=== PATIENT | male | born 1950 | race Caucasian/White ===

== ENCOUNTER 2017-06-22 06:11 | Inpatient (IN) ==
[2017-06-22] MEDS ORDERED: 0.9 % Sodium Chloride 500 ML IVC ONE (06:29)
[2017-06-22] MEDS ORDERED: Ondansetron 4 MG/2 ML VIAL IVP ONE (06:29)
[2017-06-22] MEDS ORDERED: *HR* Morphine 2 MG/ML SYRINGE IVP ONE (06:29)
[2017-06-22] MEDS ORDERED: Ipratropium/Albuterol Neb 3 ML IH ONE (06:32)
[2017-06-22 06:50] LABS: Basophils % 0.6 %; Eosinophils # 0.3 K/mcL (0.0-0.6); Eosinophils % 4.6 %; Hematocrit 47.5 % (37.5-50.1); Hemoglobin 16.4 g/dL (12.9-16.9); Immature Granulocytes % 0.3 % (0-4); Lymphocytes # 0.7 K/mcL (0.6-4.6); Lymphocytes % 9.7 %; Mean Corpuscular HGB Conc 34.5 g/dL (31.6-35.5); Mean Corpuscular Volume 86.8 fL (83.0-100.0); Mean Platelet Volume 10.1 fL (9.4-12.4); Monocytes # 0.5 K/mcL (0.0-1.3); Monocytes % 6.7 %; Neutrophils # 5.2 K/mcL (1.6-8.9); Platelet Count 140 K/mcL (140-400); Red Blood Count 5.47 M/mcL (4.19-5.50); Red Cell Distribution Width 13.9 % (11.5-14.5); Segmented Neutrophils % 78.1 %
[2017-06-22 07:00] LABS: INR 1.1; Prothrombin Time 11.7 Seconds (9.4-12.1)
[2017-06-22 07:03] LABS: Activated Partial Thrombo Time 33.2 Seconds (26.0-36.0)
[2017-06-22 07:05] LABS: Alanine Aminotransferase 30 Units/L (7-52); Albumin 4.2 g/dL (3.5-5.7); Alkaline Phosphatase 164 Units/L (34-104); Aspartate Amino Transferase 53 Units/L (13-39); BUN/Creatinine Ratio 9 (6-26); Bilirubin,Direct 0.4 mg/dL (0.0-0.2); Bilirubin,Total 1.4 mg/dL (0.3-1.0); Blood Urea Nitrogen 8 mg/dL (8-23); Calcium 9.7 mg/dL (8.6-10.3); Carbon Dioxide 25 mEq/L (23-29); Chloride 103 mEq/L (98-107); Globulin 4.1 g/dL (2.4-3.5); Glucose 94 mg/dL (70-105); Lipase 29 Units/L (11-82); Osmolality,Calculated 282 (280-300); Potassium 3.4 mEq/L (3.5-5.1); Sodium 137 mEq/L (136-145); Total Protein 8.3 g/dL (6.4-8.9); eGFR For African Americans > 60 (> 60); eGFR For Non-African Americans > 60 (> 60)
[2017-06-22] MEDS ORDERED: Lidocaine/EPI 1:100k 1% 20 ML VIAL INFILT ONE (07:10)
[2017-06-22] MEDS ORDERED: *HR* FentaNYL (PF) 100 MCG/2 ML VIAL IVP ONE (07:12)
[2017-06-22] MEDS ORDERED: *HR* Midazolam HCl 2 MG/2 ML VIAL IVP ONE (07:12)
--- NOTE | 2017-06-22 07:19 | Emergency Department Note ---
Disposition Clinical Impression: Chest pain Qualifiers: Chest pain type: unspecified Qualified Code(s): R07.9 - Chest pain, unspecified Pneumothorax Qualifiers: Pneumothorax type: spontaneous, primary Qualified Code(s): J93.11 - Primary spontaneous pneumothorax Disposition: Still a Patient Condition: Fair Referrals: Estela Woodard MD [Primary Care Provider] - Time of Disposition: 07:23 General Adult HPI - General Chief complaint: ED Chest Pain Stated complaint: jose/left side chest pain Time Seen by Provider: 06/22/17 06:15 Source: patient Mode of arrival: ambulatory Limitations: no limitations Nursing Notes Reviewed: Yes Vital Signs Reviewed: Yes - History of Present Illness HPI Narrative: Patient presents emergency room complaining of right-sided scapular pain that started just after waking this morning. Patient went outside to clean off his car and felt increasing pain in the shoulder. He also had some shortness of breath and palpitations. Patient attempted to call EMS for evaluation but they were unable to make the house of the family drove him here to the emergency room for evaluation. Denies any other complaints or issues prior to the events here today. 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 Review of Systems: As Per HPI Constitutional: Denies: fever, chills Cardiovascular: Reports: chest pain, palpitations, dyspnea on exertion. Denies : orthopnea, edema Respiratory: Reports: dyspnea. Denies: cough, wheezes Gastrointestinal: Denies: nausea, vomiting, diarrhea Genitourinary: Denies: dysuria, frequency Musculoskeletal: Denies: back pain, neck pain Neurological: Denies: headache Past Medical History - Past Medical History Attestation: Yes The following information was validated with the patient. Source: patient Medical history: Reports: cancer, hypertension Psychiatric history: Reports: no psych history - Social History Smoking Status: Never smoker Smokeless Tobacco Status: No Alcohol use: Reports: none Drug use: Reports: none Physical Exam - General Limitations: no limitations General appearance: alert, in no apparent distress - ENT ENT exam: normal exam, normal oropharynx, mucous membranes moist - Neck Neck exam: Present: normal inspection, full ROM, trachea midline - Chest Chest inspection: Present: normal inspection, symmetric chest wall rise - Respiratory Respiratory exam: Present: respiratory distress. Absent: normal lung sounds bilaterally, wheezes, stridor, accessory muscle use - Cardiovascular Cardiovascular exam: Present: normal rhythm, tachycardia, normal heart sounds - Abdominal Exam Abdominal exam: Present: soft, Non-Tender. Absent: tenderness, distention, guarding, rebound, rigidity - Extremities Exam Extremities exam: Present: normal inspection - Neurological Exam Neurological exam: Present: alert, oriented X3, CN II-XII intact, normal gait - Skin Skin exam: Present: warm, dry, intact, normal color Course Course Narrative: Patient seen and examined the time of arrival. See history of present illness. 67-year-old male presents to emergency room with right scapular pain and shortness of breath. Onset was this morning going out to clean the sidewalks from the snow. 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 He is currently in chemotherapy. Patient denies any trauma. My physical exam gentleman appears to be in some mild distress. He is uncomfortable with inspiration. Chest wall shows no gross deformity. Patient denies any trauma. Auscultation the lungs patient has good breath sounds on the left side but diminished insignificantly diminished breath sounds on the right side. Patient's heart is regular but tachycardic. Abdomen soft nontender nondistended. Concern is noted initially for pneumothoraces. Chest x -ray EKG labs include a CBC chemistry and coags were ordered immediately at this point. Patient also had order for CT angiography of the chest if the chest x-ray was negative. Patient was provided with fluids and pain medication here. Oxygen going to be applied. Chest x-ray was done at the bedside while I was completed the documentation patient is found to have approximately 50% pneumothoraces on the right side of the chest wall. No gross signs of fracture injury noted with this treatment. CT angiography will be canceled this point. A detailed review the presentation symptoms and bedside sono was completed with Dr. isbell. She will complete the course of care placing a chest tube and admitting the patient for definitive evaluation management. Otherwise no other acute pathology noted during my initial evaluation treatment course. Vital Signs Temperature 97.6 F 06/22/17 06:12 Pulse Rate 115 06/22/17 06:12 Respiratory Rate 20 06/22/17 06:12 Blood Pressure 172/109 06/22/17 06:12 O2 Sat by Pulse Oximetry 92 06/22/17 06:12 Temperature 97.6 F 06/22/17 06:12 Pulse Rate 104 06/22/17 06:59 Respiratory Rate 18 06/22/17 06:59 Blood Pressure 156/92 06/22/17 06:59 O2 Sat by Pulse Oximetry 93 06/22/17 07:14 Oxygen Delivery Oxygen Delivery Room Air Medical Decision Making - MDM Narrative Medical decision making narrative: Right-sided pneumothorax, right chest wall pain - Medical Records Medical records reviewed: Yes I reviewed the patient's medical records. - Lab Data Lab results reviewed: Yes I reviewed the patient's lab results. Result diagrams: 06/22/17 06:39 06/22/17 06:39 Lab Results 06/22/17 06/22/17 06/22/17 Range/Units 06:39 06:39 06:39 WBC 6.7 (4.3-11.1) K/mcL RBC 5.47 (4.19-5.50) M/mcL Hgb 16.4 (12.9-16.9) g/dL Hct 47.5 (37.5-50.1) % MCV 86.8 (83.0-100.0) fL MCH 30.0 (28.0-33.3) pg MCHC 34.5 (31.6-35.5) g/dL RDW 13.9 (11.5-14.5) % Plt Count 140 (140-400) K/mcL MPV 10.1 (9.4-12.4) fL Immature Gran % 0.3 (0-4) % Seg Neutrophils % 78.1 % Lymphocytes % 9.7 % Monocytes % 6.7 % Eosinophils % 4.6 % Basophils % 0.6 % Neutrophils # 5.2 (1.6-8.9) K/mcL Lymphocytes # 0.7 (0.6-4.6) K/mcL Monocytes # 0.5 (0.0-1.3) K/mcL Eosinophils # 0.3 (0.0-0.6) K/mcL Basophils # 0.0 (0.0-0.2) K/mcL PT 11.7 (9.4-12.1) Seconds INR 1.1 APTT 33.2 (26.0-36.0) Seconds Sodium 137 (136-145) mEq/L Potassium 3.4 L (3.5-5.1) mEq/L Chloride 103 (98-107) mEq/L Carbon Dioxide 25 (23-29) mEq/L BUN 8 (8-23) mg/dL Creatinine 0.89 (0.70-1.30) mg/dL Est GFR ( Amer) > 60 (> 60) Est GFR (Non-Af Amer) > 60 (> 60) BUN/Creatinine Ratio 9 (6-26) Glucose 94 (70-105) mg/dL Calculated Osmolality 282 (280-300) Calcium 9.7 (8.6-10.3) mg/dL Total Bilirubin 1.4 H (0.3-1.0) mg/dL Direct Bilirubin 0.4 H (0.0-0.2) mg/dL Indirect Bilirubin 1.0 (0.0-1.2) mg/dL AST 53 H (13-39) Units/L ALT 30 (7-52) Units/L Alkaline Phosphatase 164 H (34-104) Units/L Troponin I (< 0.04) ng/mL Serum Total Protein 8.3 (6.4-8.9) g/dL Albumin 4.2 (3.5-5.7) g/dL Globulin 4.1 H (2.4-3.5) g/dL Albumin/Globulin Ratio 1.0 L (1.1-2.2) Lipase 29 (11-82) Units/L //17 Range/Units 06:39 WBC (4.3-11.1) K/mcL RBC (4.19-5.50) M/mcL Hgb (12.9-16.9) g/dL Hct (37.5-50.1) % MCV (83.0-100.0) fL MCH (28.0-33.3) pg MCHC (31.6-35.5) g/dL RDW (11.5-14.5) % Plt Count (140-400) K/mcL MPV (9.4-12.4) fL Immature Gran % (0-4) % Seg Neutrophils % % Lymphocytes % % Monocytes % % Eosinophils % % Basophils % % Neutrophils # (1.6-8.9) K/mcL Lymphocytes # (0.6-4.6) K/mcL Monocytes # (0.0-1.3) K/mcL Eosinophils # (0.0-0.6) K/mcL Basophils # (0.0-0.2) K/mcL PT (9.4-12.1) Seconds INR APTT (26.0-36.0) Seconds Sodium (136-145) mEq/L Potassium (3.5-5.1) mEq/L Chloride (98-107) mEq/L Carbon Dioxide (23-29) mEq/L BUN (8-23) mg/dL Creatinine (0.70-1.30) mg/dL Est GFR ( Amer) (> 60) Est GFR (Non-Af Amer) (> 60) BUN/Creatinine Ratio (6-26) Glucose (70-105) mg/dL Calculated Osmolality (280-300) Calcium (8.6-10.3) mg/dL Total Bilirubin (0.3-1.0) mg/dL Direct Bilirubin (0.0-0.2) mg/dL Indirect Bilirubin (0.0-1.2) mg/dL AST (13-39) Units/L ALT (7-52) Units/L Alkaline Phosphatase (34-104) Units/L Troponin I 0.04 H* (< 0.04) ng/mL Serum Total Protein (6.4-8.9) g/dL Albumin (3.5-5.7) g/dL Globulin (2.4-3.5) g/dL Albumin/Globulin Ratio (1.1-2.2) Lipase (11-82) Units/L - Radiology Data Radiology results reviewed: Yes I reviewed the patient's radiology results. Chest x-ray shows 50% pneumothoraces right side of the chest wall. Reviewed by myself and confirmed by the radiologist - EKG Data EKG #1 EKG attestation: Yes I reviewed and interpreted this EKG. EKG results narrative: EKG shows sinus tachycardia with inverted T waves in leads V2 V3. Patient has no other acute ischemic changes and EKG. Intervals are within normal limits. No axis deviation and at this time. No other acute pathology noted in the treatment Critical Care Time Critical Care Time: Yes Total Critical Care Time: 35 Attestation: Critical care performed: Time is exclusive of separately billable procedures. Time includes: direct patient care, patient reassessment, coordination of patient care, interpretation of data (laboratory data, radiology data, and respiratory data), review of patient's medical records, medical consultation and documentation of patient care. Procedures included in critical care time: Procedures excluded from critical care time:
--- NOTE | 2017-06-22 08:20 | Emergency Department Note ---
Disposition Clinical Impression: Chest pain Qualifiers: Chest pain type: unspecified Qualified Code(s): R07.9 - Chest pain, unspecified Pneumothorax Qualifiers: Pneumothorax type: spontaneous, primary Qualified Code(s): J93.11 - Primary spontaneous pneumothorax Disposition: Still a Patient Condition: Fair General Adult HPI - General Chief complaint: ED Chest Pain Stated complaint: jose/left side chest pain Time Seen by Provider: 06/22/17 06:15 Source: patient Mode of arrival: ambulatory Limitations: no limitations Nursing Notes Reviewed: Yes Vital Signs Reviewed: Yes - History of Present Illness HPI Narrative: Patient taken at sign out from Dr. Munoz. Patient had no breath sounds on the right. Chest x-ray shows pneumothorax. Planned chest tube. Patient awoke this morning with pain in the right shoulder blade. Patient was brushing off the snow from his 's car when he developed chest pain and shortness of breath. Patient presented to the emergency department and was placed on a nasal cannula with pulse ox of 94% on 2 L. No home oxygen. No previous smoking history. Patient does have liver cancer with metastasis to the lungs. Currently on chemotherapy at [facility]. Location: chest Pain Scale: 4 Quality: aching Improves with: nothing Worsens with: movement Associated symptoms: Reports: denies other symptoms Treatments Prior to Arrival: none - Related Data Allergies Allergy/AdvReac Type Severity Reaction Status Date / Time No Known Allergies Allergy Verified 06/22/17 06:14 Constitutional: Denies: fever, chills Cardiovascular: Reports: chest pain, palpitations, dyspnea on exertion. Denies : orthopnea, edema Respiratory: Reports: dyspnea. Denies: cough, wheezes Gastrointestinal: Denies: nausea, vomiting, diarrhea Genitourinary: Denies: dysuria, frequency Musculoskeletal: Denies: back pain, neck pain Neurological: Denies: headache Past Medical History - Past Medical History Medical history: Reports: cancer, hypertension Psychiatric history: Reports: no psych history - Social History Smoking Status: Never smoker Smokeless Tobacco Status: No Alcohol use: Reports: none Drug use: Reports: none Physical Exam General appearance: NAD, conversant on 2 L nasal cannula Eyes: anicteric sclerae, moist conjunctivae; PERRL HENT: Atraumatic; oropharynx clear with moist mucous membranes and no mucosal ulcerations Neck: Normal inspection; Trachea midline; FROM, supple Lungs: No breath sounds on the right CV: Regular rhythm Abdomen: Soft, non-tender; no rebound or gaurding Extremities: No peripheral edema or extremity lymphadenopathy Skin: Normal temperature; no rash, ulcers or lesions Psych: Appropriate mood and affect Neuro: alert and oriented to person, place and time - General Limitations: no limitations General appearance: alert, in no apparent distress Course - Consultations Consultation #1: Discussed with ICU automatic spreader operator, Bobby, will follow as a consult for chest tube management. Consultation #2: Dr. Burdick accepts for further managment. Vital Signs Temperature 97.6 F 06/22/17 06:12 Pulse Rate 115 06/22/17 06:12 Respiratory Rate 20 06/22/17 06:12 Blood Pressure 172/109 06/22/17 06:12 O2 Sat by Pulse Oximetry 92 06/22/17 06:12 Temperature 97.6 F 06/22/17 06:12 Pulse Rate 87 06/22/17 08:48 Respiratory Rate 16 06/22/17 09:13 Blood Pressure 139/87 06/22/17 09:13 O2 Sat by Pulse Oximetry 93 06/22/17 08:48 Oxygen Delivery Oxygen Delivery Nasal Cannula Procedures - Chest Tube Chest Tube 1 Chest Tube Location: right Chest Tube Prep: other Local Anesthetic: lidocaine 1%, with epi Amount of Anesthesia Used (mL): 15 Incision Made With: #11 blade Post Procedure: sutured to skin, sterile dressing applied Tube Drainage: none Post Procedure CXR?: Yes Patient Tolerated Procedure: Yes Progress: Written consents obtained. Patient was given 2mg of Versed and 75mcg of fentanyl. The area was prepped with chlorhexidine and 15 mL's of 1% Lidocaine with epinephrine were injected. Full sterile technique. An 11 blade was used to make an incision within the skin. An 8-Faroese chest tube was placed between the fourth and fifth rib in the chair axillary line. Patient tolerated the procedure well. No complications. Attached to wall suction. Medical Decision Making - Lab Data Result diagrams: 06/22/17 06:39 06/22/17 06:39 Lab Results 06/22/17 06/22/17 06/22/17 Range/Units 06:39 06:39 06:39 WBC (4.3-11.1) K/mcL RBC (4.19-5.50) M/mcL Hgb (12.9-16.9) g/dL Hct (37.5-50.1) % MCV (83.0-100.0) fL MCH (28.0-33.3) pg MCHC (31.6-35.5) g/dL RDW (11.5-14.5) % Plt Count (140-400) K/mcL MPV (9.4-12.4) fL Immature Gran % (0-4) % Seg Neutrophils % % Lymphocytes % % Monocytes % % Eosinophils % % Basophils % % Neutrophils # (1.6-8.9) K/mcL Lymphocytes # (0.6-4.6) K/mcL Monocytes # (0.0-1.3) K/mcL Eosinophils # (0.0-0.6) K/mcL Basophils # (0.0-0.2) K/mcL PT 11.7 (9.4-12.1) Seconds INR 1.1 APTT 33.2 (26.0-36.0) Seconds Sodium 137 (136-145) mEq/L Potassium 3.4 L (3.5-5.1) mEq/L Chloride 103 (98-107) mEq/L Carbon Dioxide 25 (23-29) mEq/L BUN 8 (8-23) mg/dL Creatinine 0.89 (0.70-1.30) mg/dL Est GFR ( Amer) > 60 (> 60) Est GFR (Non-Af Amer) > 60 (> 60) BUN/Creatinine Ratio 9 (6-26) Glucose 94 (70-105) mg/dL Calculated Osmolality 282 (280-300) Calcium 9.7 (8.6-10.3) mg/dL Total Bilirubin 1.4 H (0.3-1.0) mg/dL Direct Bilirubin 0.4 H (0.0-0.2) mg/dL Indirect Bilirubin 1.0 (0.0-1.2) mg/dL AST 53 H (13-39) Units/L ALT 30 (7-52) Units/L Alkaline Phosphatase 164 H (34-104) Units/L Troponin I (< 0.04) ng/mL B-Natriuretic Peptide 82 (Less than 100) pg/mL Serum Total Protein 8.3 (6.4-8.9) g/dL Albumin 4.2 (3.5-5.7) g/dL Globulin 4.1 H (2.4-3.5) g/dL Albumin/Globulin Ratio 1.0 L (1.1-2.2) Lipase 29 (11-82) Units/L 06/22/17 06/22/17 Range/Units 06:39 06:39 WBC 6.7 (4.3-11.1) K/mcL RBC 5.47 (4.19-5.50) M/mcL Hgb 16.4 (12.9-16.9) g/dL Hct 47.5 (37.5-50.1) % MCV 86.8 (83.0-100.0) fL MCH 30.0 (28.0-33.3) pg MCHC 34.5 (31.6-35.5) g/dL RDW 13.9 (11.5-14.5) % Plt Count 140 (140-400) K/mcL MPV 10.1 (9.4-12.4) fL Immature Gran % 0.3 (0-4) % Seg Neutrophils % 78.1 % Lymphocytes % 9.7 % Monocytes % 6.7 % Eosinophils % 4.6 % Basophils % 0.6 % Neutrophils # 5.2 (1.6-8.9) K/mcL Lymphocytes # 0.7 (0.6-4.6) K/mcL Monocytes # 0.5 (0.0-1.3) K/mcL Eosinophils # 0.3 (0.0-0.6) K/mcL Basophils # 0.0 (0.0-0.2) K/mcL PT (9.4-12.1) Seconds INR APTT (26.0-36.0) Seconds Sodium (136-145) mEq/L Potassium (3.5-5.1) mEq/L Chloride (98-107) mEq/L Carbon Dioxide (23-29) mEq/L BUN (8-23) mg/dL Creatinine (0.70-1.30) mg/dL Est GFR ( Amer) (> 60) Est GFR (Non-Af Amer) (> 60) BUN/Creatinine Ratio (6-26) Glucose (70-105) mg/dL Calculated Osmolality (280-300) Calcium (8.6-10.3) mg/dL Total Bilirubin (0.3-1.0) mg/dL Direct Bilirubin (0.0-0.2) mg/dL Indirect Bilirubin (0.0-1.2) mg/dL AST (13-39) Units/L ALT (7-52) Units/L Alkaline Phosphatase (34-104) Units/L Troponin I 0.04 H* (< 0.04) ng/mL B-Natriuretic Peptide (Less than 100) pg/mL Serum Total Protein (6.4-8.9) g/dL Albumin (3.5-5.7) g/dL Globulin (2.4-3.5) g/dL Albumin/Globulin Ratio (1.1-2.2) Lipase (11-82) Units/L Attestation Statement - Attestation Attestation: I examined this patient and my medical decision-making was reviewed with the Resident Physician. I agree with the documented findings, disposition and treatment plan as described except to the extent set forth below. Patient presents to emergency department with scapular pain shortness of breath. He was signed out pending workup. Patient has a large, 50% pneumothorax on the right. A chest tube was placed by Dr. Zhang with my constant supervision. Patient tolerated procedure well no complications. Lung reexpanded and repeat x-ray. Patient admitted to the hospitalist. 40 minutes of critical care exclusive of separately global procedures.
--- NOTE | 2017-06-22 08:34 | Emergency Department Note ---
Disposition Referrals: Estela Woodard MD [Primary Care Provider] - General Adult HPI - General Chief complaint: ED Chest Pain Stated complaint: jose/left side chest pain Time Seen by Provider: 06/22/17 06:15 Source: patient Limitations: no limitations - History of Present Illness Pain Scale: 4 - Related Data Allergies Allergy/AdvReac Type Severity Reaction Status Date / Time No Known Allergies Allergy Verified 06/22/17 06:14 Past Medical History - Past Medical History Medical history: Reports: cancer, hypertension Psychiatric history: Reports: no psych history - Social History Smoking Status: Never smoker Smokeless Tobacco Status: No Alcohol use: Reports: none Drug use: Reports: none Physical Exam - General Limitations: no limitations General appearance: alert, in no apparent distress Course Vital Signs Temperature 97.6 F 06/22/17 06:12 Pulse Rate 115 06/22/17 06:12 Respiratory Rate 20 06/22/17 06:12 Blood Pressure 172/109 06/22/17 06:12 O2 Sat by Pulse Oximetry 92 06/22/17 06:12 Temperature 97.6 F 06/22/17 06:12 Pulse Rate 104 06/22/17 06:59 Respiratory Rate 18 06/22/17 06:59 Blood Pressure 156/92 06/22/17 06:59 O2 Sat by Pulse Oximetry 94 06/22/17 06:59 Oxygen Delivery Oxygen Delivery Room Air Medical Decision Making - Lab Data Result diagrams: 06/22/17 06:39 06/22/17 06:39 Lab Results 06/22/17 06/22/17 06/22/17 Range/Units 06:39 06:39 06:39 WBC 6.7 (4.3-11.1) K/mcL RBC 5.47 (4.19-5.50) M/mcL Hgb 16.4 (12.9-16.9) g/dL Hct 47.5 (37.5-50.1) % MCV 86.8 (83.0-100.0) fL MCH 30.0 (28.0-33.3) pg MCHC 34.5 (31.6-35.5) g/dL RDW 13.9 (11.5-14.5) % Plt Count 140 (140-400) K/mcL MPV 10.1 (9.4-12.4) fL Immature Gran % 0.3 (0-4) % Seg Neutrophils % 78.1 % Lymphocytes % 9.7 % Monocytes % 6.7 % Eosinophils % 4.6 % Basophils % 0.6 % Neutrophils # 5.2 (1.6-8.9) K/mcL Lymphocytes # 0.7 (0.6-4.6) K/mcL Monocytes # 0.5 (0.0-1.3) K/mcL Eosinophils # 0.3 (0.0-0.6) K/mcL Basophils # 0.0 (0.0-0.2) K/mcL PT 11.7 (9.4-12.1) Seconds INR 1.1 APTT 33.2 (26.0-36.0) Seconds Sodium 137 (136-145) mEq/L Potassium 3.4 L (3.5-5.1) mEq/L Chloride 103 (98-107) mEq/L Carbon Dioxide 25 (23-29) mEq/L BUN 8 (8-23) mg/dL Creatinine 0.89 (0.70-1.30) mg/dL Est GFR ( Amer) > 60 (> 60) Est GFR (Non-Af Amer) > 60 (> 60) BUN/Creatinine Ratio 9 (6-26) Glucose 94 (70-105) mg/dL Calculated Osmolality 282 (280-300) Calcium 9.7 (8.6-10.3) mg/dL Total Bilirubin 1.4 H (0.3-1.0) mg/dL Direct Bilirubin 0.4 H (0.0-0.2) mg/dL Indirect Bilirubin 1.0 (0.0-1.2) mg/dL AST 53 H (13-39) Units/L ALT 30 (7-52) Units/L Alkaline Phosphatase 164 H (34-104) Units/L Serum Total Protein 8.3 (6.4-8.9) g/dL Albumin 4.2 (3.5-5.7) g/dL Globulin 4.1 H (2.4-3.5) g/dL Albumin/Globulin Ratio 1.0 L (1.1-2.2) Lipase 29 (11-82) Units/L
[2017-06-22] MEDS ORDERED: Aspirin 325 MG TABLET PO ONE (08:41)
--- NOTE | 2017-06-22 10:08 | Pulmonology Consult Note ---
Date of Encounter: 06/22/17 Time of Encounter: 10:07 Assessment and Plan (1) Spontaneous pneumothorax Current Visit: Yes Status: Acute Suspected secondary spontaneous pneumothorax secondary metastatic malignancy to lung vs possibly undiagnosed emphysema . Has post chest tube placement still with positive air leak Chest x-ray from the ED to general medical floor stable Keep chest tube to wall suction overnight Continue supplemental oxygen to keep saturation high 90s Chest x-ray ordered in the morning Also order a CT scan to be performed for further evaluation of lung parenchyma If patient clinically deteriorates the chest x-ray performed urgently and CT surgery should be called for placement of large bore chest tube Further evaluation including mechanical pleurodesis depended upon radiographic findings and clinical course (2) Metastatic carcinoma to lung Current Visit: Yes Status: Acute This is being followed at [facility] Qualifiers: Laterality: unspecified laterality Qualified Code(s): C78.00 - Secondary malignant neoplasm of unspecified lung (3) Former smoker Current Visit: Yes Status: Acute Possible underlying COPD recommend outpatient evaluation with pulmonary function testing History of Present Illness Consult date: 06/22/17 Requesting physician: Fabi Nava See Reason for consult: pneumothorax Chief complaint: Difficulty in Breathing History of present illness: This is a pleasant 67-year-old gentleman who presented to ED earlier today for chest pain and difficulty in breathing. Patient noted that he awoke from sleep with right shoulder pain which progressed to increased chest pain and difficulty breathing after he was brushing off the snow from his 's car. In the ED he was noted to have a large right-sided pneumothorax status post smallbore chest tube placement with evacuation. Pulmonary was consulted for further manic evaluation fo PTX and management of chest tube He is a former heavy smoker about a pack a day from the age of 17 quitting 25 years ago he has a recent history of being diagnosed with liver cancer of unclear type with metastatic disease to the long this is being treated at [facility] and per patient the lung nodules these were getting smaller at last scan. He does not have a history of emphysema or any other structural lung disease no prior history of chest tube for pneumothorax. No Family history contributory lung disease. He denies any recent falls or trauma Past Med Surg Social Fam HX - Past Medical History Medical history: cancer, hypertension Psychiatric history: no psych history - Social History Smoking Status: Never smoker Smokeless Tobacco Status: No Alcohol use: none Drug use: none Medications and Allergies Amlodipine Besylate [Amlodipine Besylate] 10 mg PO DAILY 06/22/17 [History] Sorafenib Tosylate [Nexavar] 400 mg PO BID 06/22/17 [History] Tramadol HCl [Ultram] 50 mg PO Q4H PRN 06/22/17 [History] Urea [Urea] 1 appl TP BID 06/22/17 [History] 3 Allergy/AdvReac Type Severity Reaction Status Date / Time No Known Allergies Allergy Verified 06/22/17 06:14 All Systems: A 10-system review of systems was performed and is negative for pertinent findings except as documented above in the HPI. Physical Examination Vital Signs: Vital Signs, Last 4 Hours Resp BP 06/22/17 09:13 16 139/87 General appearance: no acute distress Eyes: nonicteric ENT: oropharynx moist Neck: supple Effort: normal Inspection: other (Right chest tube noted dressing is intact air leak noted in atrium chamber) Auscultation: bilateral: clear Cardiovascular: regular rate and rhythm Gastrointestinal: normoactive bowel sounds, other (Mild tenderness to palpation right upper quadrant) Integumentary: normal Extremities: no cyanosis, no edema, no clubbing Musculoskeletal: no deformities Gait: normal gait normal mental status, non-focal exam, other (Left eye with corneal opacification ) mood appropriate Results - Laboratory Findings CBC and BMP: 06/22/17 06:39 06/22/17 06:39 PT/INR, D-dimer PT 11.7 Seconds (9.4-12.1) 06/22/17 06:39 Abnormal lab findings: Abnormal lab results Potassium 3.4 mEq/L (3.5-5.1) L 06/22/17 06:39 Total Bilirubin 1.4 mg/dL (0.3-1.0) H 06/22/17 06:39 Direct Bilirubin 0.4 mg/dL (0.0-0.2) H 06/22/17 06:39 AST 53 Units/L (13-39) H 06/22/17 06:39 Alkaline Phosphatase 164 Units/L (34-104) H 06/22/17 06:39 Troponin I 0.04 ng/mL (< 0.04) H* 06/22/17 06:39 Globulin 4.1 g/dL (2.4-3.5) H 06/22/17 06:39 Albumin/Globulin Ratio 1.0 (1.1-2.2) L 06/22/17 06:39 - Diagnostic Findings Chest x-ray: report reviewed, image reviewed CT scan - chest: report reviewed, image reviewed Consult Discharge Plan - Plan Referrals: Estela Woodard MD [Primary Care Provider] -
[2017-06-22] MEDS ORDERED: *HR* Morphine 2 MG/ML SYRINGE IVP PRN (12:30)
[2017-06-22] MEDS ORDERED: Naloxone 0.4 MG/ML INJ IVP PRN (12:30)
[2017-06-22] MEDS ORDERED: Ondansetron ODT 4 MG TAB.RAPDIS SL PRN (12:30)
[2017-06-22] MEDS ORDERED: Acetaminophen 325 MG TABLET PO PRN (12:30)
[2017-06-22] MEDS ORDERED: Mag Hydrox/Al Hydrox/Simeth 30 ML UDC PO PRN (12:30)
--- NOTE | 2017-06-22 13:06 | Internal Med History&Physical ---
Date of Encounter: 06/23/17 Time of Encounter: 10:00 Assessment and Plan (1) Spontaneous pneumothorax Current visit: Yes Status: Acute - s/p chest tube placement still with positive air leak - Pulmonary was consulted for further evaluation. - Continue supplemental oxygen to keep saturation high 90s - Repeat Chest x-ray (2) Metastatic carcinoma to lung Current Visit: Yes Status: Acute This is being followed at [facility] Qualifiers: Laterality: unspecified laterality Qualified Code(s): C78.00 - Secondary malignant neoplasm of unspecified lung (3) Former smoker Current Visit: Yes Status: Acute Possible underlying COPD recommend outpatient evaluation with pulmonary function testing (2) Metastatic carcinoma to lung Current visit: Yes Status: Acute This is being followed at [facility] Qualifiers: Laterality: unspecified laterality Qualified Code(s): C78.00 - Secondary malignant neoplasm of unspecified lung (3) DVT prophylaxis Current visit: Yes Status: Acute We will place SCD Internal Medicine - H&P: HPI History of present illness: Mr. Foster is a 67 year old male who presents emergency room complaining of right-sided scapular pain that started just after waking this morning. Patient went outside to clean off his car and felt increasing pain in the shoulder. He also had some shortness of breath and palpitations. Patient attempted to call EMS for evaluation but they were unable to make the house of the family drove him here to the emergency room for evaluation. In the ED he was noted to have a large right-sided pneumothorax , status post smallbore chest tube placement with evacuation. Past Med Surg Social Fam HX - Past Medical History Medical history: cancer, hypertension Psychiatric history: no psych history - Social History Smoking Status: Never smoker Smokeless Tobacco Status: No Alcohol use: none Drug use: none - Family History Mother Living Status: Hx Family Neurologic Disorders: Yes (stroke) Internal Medicine - H&P: Meds Amlodipine Besylate [Amlodipine Besylate] 10 mg PO DAILY 06/22/17 [History] Sorafenib Tosylate [Nexavar] 400 mg PO BID 06/22/17 [History] Tramadol HCl [Ultram] 50 mg PO Q4H PRN 06/22/17 [History] Urea [Urea] 1 appl TP BID 06/22/17 [History] 3 Allergy/AdvReac Type Severity Reaction Status Date / Time No Known Allergies Allergy Verified 06/22/17 06:14 All Systems PM: A 10-system review of systems was performed and is negative for pertinent findings except as documented above in the HPI. - Constitutional Vitals: Temp Pulse Resp BP Pulse Ox 97.7 F 73 16 113/70 95 06/22/17 11:38 06/22/17 11:38 06/22/17 11:38 06/22/17 11:38 06/22/17 11:38 Internal Med - H&P Results - Labs CBC & Chem 7: 06/23/17 01:00 06/23/17 01:00
[2017-06-22] MEDS: 0.9 % Sodium Chloride 1,000 ML IVC SCH (14:56)
[2017-06-22] MEDS: amLODIPine 5 MG TABLET PO SCH (14:56)
[2017-06-22] MEDS: traMADol 50 MG TABLET PO PRN (18:36)
[2017-06-22] MEDS: SORAFENIB TOSYLATE 400 MG PO SCH (23:03)
[2017-06-22] MEDS: UREA 20% TP SCH (23:13)
[2017-06-22 23:29] LABS: Bilirubin,Urine Negative (Negative); Blood,Urine Negative (Negative); Clarity,Urine Clear (Clear); Color,Urine Yellow (Yellow); Glucose,Urine (UA) Normal (Normal); Ketones,Urine Negative (Negative); Leukocyte Esterase,Urine Negative (Negative); Nitrite,Urine Negative (Negative); PH,Urine 6.5 pH Units (5.0-8.0); Protein,Urine 30 mg/dL (Neg-Trace); Specific Gravity,Urine 1.014 (1.010-1.025); Urobilinogen,Urine Normal (Normal)
[2017-06-22 23:31] LABS: Bacteria,Urine None Seen per hpf (None-Few); Hyaline Casts,Urine None Seen per lpf (None-Few); RBC,Urine 0-3 per hpf (0-3); Squamous Epithelial Cell,Urine None Seen per lpf (None-Few); WBC,Urine 0-3 per hpf (0-3)
[2017-06-23 01:32] LABS: Basophils % 0.5 %; Eosinophils # 0.3 K/mcL (0.0-0.6); Eosinophils % 5.9 %; Hematocrit 40.6 % (37.5-50.1); Immature Granulocytes % 0.3 % (0-4); Lymphocytes # 0.8 K/mcL (0.6-4.6); Lymphocytes % 14.2 %; Mean Corpuscular HGB Conc 34.2 g/dL (31.6-35.5); Mean Corpuscular Hemoglobin 30.5 pg (28.0-33.3); Mean Platelet Volume 10.3 fL (9.4-12.4); Monocytes # 0.5 K/mcL (0.0-1.3); Monocytes % 8.7 %; Platelet Count 115 K/mcL (140-400); Red Blood Count 4.56 M/mcL (4.19-5.50); Red Cell Distribution Width 14.3 % (11.5-14.5); Segmented Neutrophils % 70.4 %
[2017-06-23 01:37] LABS: Hemoglobin 13.9 g/dL (12.9-16.9); INR 1.1; Prothrombin Time 12.3 Seconds (9.4-12.1)
[2017-06-23] MEDS: traMADol 50 MG TABLET PO PRN ×2 (01:42→07:49)
[2017-06-23 01:51] LABS: Alanine Aminotransferase 24 Units/L (7-52); Albumin 3.4 g/dL (3.5-5.7); Albumin/Globulin Ratio 0.9 (1.1-2.2); Alkaline Phosphatase 130 Units/L (34-104); Aspartate Amino Transferase 43 Units/L (13-39); BUN/Creatinine Ratio 11 (6-26); Bilirubin,Total 0.9 mg/dL (0.3-1.0); Blood Urea Nitrogen 10 mg/dL (8-23); Calcium 8.7 mg/dL (8.6-10.3); Carbon Dioxide 25 mEq/L (23-29); Chloride 106 mEq/L (98-107); Globulin 3.6 g/dL (2.4-3.5); Glucose 103 mg/dL (70-105); Magnesium 1.7 mg/dL (1.6-2.6); Osmolality,Calculated 283 (280-300); Phosphorous 3.8 mg/dL (2.7-4.5); Potassium 3.7 mEq/L (3.5-5.1); Sodium 137 mEq/L (136-145); eGFR For African Americans > 60 (> 60); eGFR For Non-African Americans > 60 (> 60)
[2017-06-23] MEDS: 0.9 % Sodium Chloride 1,000 ML IVC SCH (06:57)
[2017-06-23] MEDS: UREA 20% TP SCH ×2 (07:45→21:46)
[2017-06-23] MEDS: amLODIPine 5 MG TABLET PO SCH (07:49)
[2017-06-23] MEDS ORDERED: amLODIPine 5 MG TABLET PO SCH (09:00)
--- NOTE | 2017-06-23 11:33 | Pulmonology Progress Note ---
Date of Encounter: 06/23/17 Time of Encounter: 11:33 Assessment and Plan (1) Spontaneous pneumothorax Current Visit: Yes Status: Acute Discharge a larger recurrence I put in a formal consultation to CT surgery for a larger bore chest tube placement for definitive management CT of the chest should be obtained after placement of chest tube for further evaluation of underlying lung architecture (2) Metastatic carcinoma to lung Current Visit: Yes Status: Acute This is being managed at [facility] Qualifiers: Laterality: unspecified laterality Qualified Code(s): C78.00 - Secondary malignant neoplasm of unspecified lung (3) Former smoker Current Visit: Yes Status: Acute Suspected underlying COPD outpatient follow-up Subjective Principal diagnosis: PTX Interval history: Denies complaints today did have to go off overnight on the amount of oxygen repeat chest x-ray shows increase in pneumothorax on the right Objective PUL Vital signs: Last Vital Signs Temp 98.2 F 06/23/17 06:00 Pulse 87 06/23/17 11:00 Resp 19 06/23/17 11:00 BP 137/78 06/23/17 11:00 Pulse Ox 97 06/23/17 11:00 General appearance: no acute distress Auscultation: left: clear, right: diminished breath sounds Cardiovascular: regular rate and rhythm Gastrointestinal: soft, non-tender normal mental status, non-focal exam mood appropriate Results - Laboratory Findings CBC and BMP: 06/23/17 01:00 06/23/17 01:00 PT/INR, D-dimer PT 12.3 Seconds (9.4-12.1) H 06/23/17 01:00 Abnormal lab findings: Abnormal lab results Plt Count 115 K/mcL (140-400) L 06/23/17 01:00 PT 12.3 Seconds (9.4-12.1) H 06/23/17 01:00 Direct Bilirubin 0.4 mg/dL (0.0-0.2) H 06/22/17 06:39 AST 43 Units/L (13-39) H 06/23/17 01:00 Alkaline Phosphatase 130 Units/L (34-104) H 06/23/17 01:00 Albumin 3.4 g/dL (3.5-5.7) L 06/23/17 01:00 Globulin 3.6 g/dL (2.4-3.5) H 06/23/17 01:00 Albumin/Globulin Ratio 0.9 (1.1-2.2) L 06/23/17 01:00 Urine Protein 30 mg/dL (Neg-Trace) H 06/22/17 23:15 - Diagnostic Findings Chest x-ray: report reviewed, image reviewed - Clinical Findings Intake & Output: Intake & Output 06/22/17 06/23/17 06/23/17 23:59 07:59 15:59 Intake Total 1800 / 1800 360 / 360 Output Total 400 / 400 Balance 1800 / 1800 -40 / -40 Weight 76.4 kg Consult Discharge Plan - Plan Referrals: Estela Woodard MD [Primary Care Provider] -
[2017-06-23] MEDS: SORAFENIB TOSYLATE 400 MG PO SCH ×2 (12:12→23:11)
--- NOTE | 2017-06-23 12:29 | Cardiothoracic Consult Note ---
Date of Encounter: 06/23/17 Time of Encounter: 12:36 Assessment and Plan (1) Spontaneous pneumothorax Current Visit: Yes Status: Acute Patient is a 67-year-old hypertensive man with metastatic hepatocellular carcinoma who was admitted to [facility] yesterday with a right spontaneous pneumothorax. He had a small bore chest tube inserted with incomplete resolution of the pneumothorax. This morning chest x-ray shows an increased size in the right pneumothorax and I have been asked to evaluate the patient for right chest tube insertion. I believe this will help evacuate the pneumothorax and resolve the patient's medical issue. The patient consents to right chest tube insertion this will be performed today. The assessment and plan as outlined above was discussed with the patient and/or family members who expressed understanding and agreement. All questions were answered. - History of Present Illness Consult date: 06/23/17 Requesting physician: Fab Rosales Consult reason: Right chest insertion Chief complaint: Right spontaneous pneumothorax History of present illness: Mr. Foster is a 67 year old hypertensive man with a metastatic hepatocellular carcinoma who awoke with right-sided chest pain yesterday. 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 He was evaluated at [facility] emergency department and found to have a right spontaneous pneumothorax. A smallbore chest tube was inserted and the patient had expansion of his right lung. This morning chest x-ray; however, showed an increase in the pneumothorax despite chest tube suction. I have been asked to evaluate the patient for right chest tube insertion. Past Med Surg Social Fam HX - Past Medical History Medical history: cancer (Static hepatocellular carcinoma), hypertension Psychiatric history: no psych history - Social History Smoking Status: Former smoker Packs per day: 1PPD X 25yrs Smokeless Tobacco Status: No Alcohol use: none Drug use: none Occupational status: retired Current living situation: Home - Independent Activity Level: Independent ambulation Recent Out of Country Travel Within the Last 8 Weeks: No Exposure or Possible Exposure to Illness During Travel: No - Family History Mother Living Status: Hx Family Neurologic Disorders: Yes (stroke) Medications and Allergies Amlodipine Besylate [Amlodipine Besylate] 10 mg PO DAILY 06/22/17 [History] Sorafenib Tosylate [Nexavar] 400 mg PO BID 06/22/17 [History] Tramadol HCl [Ultram] 50 mg PO Q4H PRN 06/22/17 [History] Urea [Urea] 1 appl TP BID 06/22/17 [History] 3 Allergy/AdvReac Type Severity Reaction Status Date / Time No Known Allergies Allergy Verified 06/22/17 06:14 All Systems Review: A 10-system review of systems was performed and is negative for pertinent findings except as documented above in the HPI. Physical Examination Vital Signs, Last 4 Hours Pulse Resp BP Pulse Ox 06/23/17 11:00 87 19 137/78 97 General: Conversant, No Apparent Distress HEENT: Atraumatic, Normocephaly, Trachea midline Neck: No JVD, Normal carotid pulses Cardiac: Reg Rate and Rhythm Lungs: Normal Breath Sounds, No Wheeze, Rales, Rhonchi Neuro: Alert and responsive, No focal deficits noted Vascular: Normal capillary refill Abdomen: Soft, Non-tender Skin: No rashes noted on visualized skin Musculoskeletal: No Chest Wall Tenderness Extremities: No Clubbing, No Cyanosis, No Edema Results 06/23/17 01:00 06/23/17 01:00 Lab Results, Last 24 hours 06/22/17 06/22/17 06/23/17 13:51 18:36 01:00 WBC Hgb Hct Plt Count INR Sodium Potassium Chloride Carbon Dioxide BUN Creatinine Glucose Calcium Magnesium Total Bilirubin AST ALT Alkaline Phosphatase Troponin I 0.04 H* 0.04 H* 0.03 06/23/17 06/23/17 06/23/17 01:00 01:00 01:00 WBC 5.7 Hgb 13.9 D Hct 40.6 Plt Count 115 L INR 1.1 Sodium 137 Potassium 3.7 Chloride 106 Carbon Dioxide 25 BUN 10 Creatinine 0.89 Glucose 103 Calcium 8.7 Magnesium 1.7 Total Bilirubin 0.9 AST 43 H ALT 24 Alkaline Phosphatase 130 H Troponin I - Imaging Chest Xray: image reviewed (Normal cardiac size. Increased right pneumothorax.) Consult Discharge Plan - Plan Referrals: Estela Woodard MD [Primary Care Provider] -
[2017-06-23] MEDS ORDERED: Lidocaine 1% 20 ML MDV ID ONE (12:44)
--- NOTE | 2017-06-23 13:18 | Operative Note ---
Date of procedure: 06/23/17 Pre-op diagnosis: Persistent right spontaneous pneumothorax. Post-op diagnosis: same Procedure: 1. Right chest tube insertion. Implants: None. Complications: None. Anesthesia: local Local Anesthetics: 1% Lidocaine HCL SubQ (cc) (15) Surgeon: David Patel Was there an assistant nurse manager present: No Estimated blood loss (cc): 3 Specimen: None. Condition: stable Disposition: floor Procedure in Detail: INDICATIONS FOR PROCEDURE: The patient is a 67 year old hypertensive man with a metastatic hepatocellular carcinoma who awoke with right-sided chest pain yesterday. 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 He was evaluated at [facility] emergency department and found to have a right spontaneous pneumothorax. A smallbore chest tube was inserted and the patient had expansion of his right lung. This morning chest x-ray; however, showed an increase in the pneumothorax despite chest tube suction. I have been asked to evaluate the patient for right chest tube insertion. FINDING AT OPERATION: The patient had expulsion of air when the right pleural space was entered. No other abnormalities were noted. DESCRIPTION OF OPERATION: After obtaining informed consent from the patient, he was placed in the left lateral decubitus position and his right lateral chest was prepped and draped in a sterile fashion. A lower intercostal space was identified in the midaxillary line and the skin and subcutaneous tissue was anesthetized with lidocaine 1% without epinephrine. A transverse incision was then made through the skin and subcutaneous tissue, and the latissimus dorsi muscle group was bluntly dissected using a hemostat. The intercostal space was entered and there is expulsion of air immediately. A 28 Danish chest tube was placed through the intercostal space and directed posteriorly and superiorly. The tube was secured to the skin using 2-0 silk suture. Sterile dressings were applied. The patient tolerated the procedure without difficulty. Chest x-ray is pending at time of dictation.
[2017-06-23] MEDS: *HR* Morphine 2 MG/ML SYRINGE IVP PRN ×3 (13:40→22:59)
[2017-06-23] MEDS: *HR* OxyCODONE/APAP 5/325 TABLET PO PRN (15:00)
--- NOTE | 2017-06-23 15:28 | Internal Med Progress Note ---
Date of Encounter: 06/23/17 Time of Encounter: 09:00 - Assessment and plan (1) Spontaneous pneumothorax Current Visit: Yes Status: Acute Assessment and plan: Right spontaneous pneumothorax - s/p small bore chest tube with incomplete resolution of the pneumothorax Pulmonology consult - appreciate input Cardiothoracic consult - large-bore right-sided chest tube placed with near complete resolution of right pneumothorax IV Morphine PRN, Percocet PRN Cardiac telemetry, pulse ox, monitor closely (2) Metastatic carcinoma to lung Current Visit: Yes Status: Acute Assessment and plan: Metastatic hepatocellular carcinoma - currently on chemotherapy Follows up at [facility] Qualifiers: Laterality: unspecified laterality Qualified Code(s): C78.00 - Secondary malignant neoplasm of unspecified lung (3) DVT prophylaxis Current Visit: Yes Status: Acute Assessment and plan: Continue SCDs, avoid anticoagulants at this time because of chest tube placement - Time Spent With Patient 25 - 35 minutes - Subjective Interval history: Examined this morning. Patient is retired. Denies shortness of breath. Complains of mild right sided chest pain at the site of chest tube. No fever. Hemodynamically stable. No other acute events or complaints. States he feels better. Admitted for spontaneous pneumothorax. Patient also has a history of metastatic carcinoma to lung and follows up at [facility]. Pulmonology is managing chest tube. Repeat chest x-ray this morning revealed recurrence of a moderate right pneumothorax. Cardiothoracic surgery has been consulted for a right chest tube insertion and definitive management of the spontaneous pneumothorax. - Constitutional Vitals: Temp Pulse Resp BP Pulse Ox 98.2 F 87 19 137/78 97 06/23/17 06:00 06/23/17 11:00 06/23/17 11:00 06/23/17 11:00 06/23/17 11:00 General appearance: Present: cooperative, A&O X 3, pleasant, no acute distress, answers questions appropriately - Head Head exam: Present: atraumatic - Eye Eye exam: Present: EOMI - ENT ENT exam: Present: mucous membranes dry - Neck Neck exam general surgery: Present: full ROM - Respiratory Respiratory exam: Present: decreased breath sounds (Slightly decreased in both bases, otherwise clear to auscultation), CTAB. Absent: accessory muscle use, chest wall tenderness, rales, respiratory distress, rhonchi, wheezes, tachypnea Additional comments: Right-sided chest tube in place - Cardiovascular Cardiovascular exam: Present: RRR, +S1, +S2 - GI/Abdominal GI/Abdominal exam: Present: soft. Absent: distended, firm, guarding, tenderness - Extremities Exam Extremities exam: Present: radial pulses palpable and symmetrical. Absent: calf tenderness, cyanotic, pedal edema - Neurological Exam Neurological exam: Present: alert, oriented X3, no focal deficits. Absent: facial droop, speech deficit Internal Medicine: Result - Labs CBC & Chem 7: 06/23/17 01:00 06/23/17 01:00 Labs: Short CBC 06/23/17 Range/Units 01:00 WBC 5.7 (4.3-11.1) K/mcL Hgb 13.9 D (12.9-16.9) g/dL Hct 40.6 (37.5-50.1) % Plt Count 115 L (140-400) K/mcL Neutrophils # 4.0 (1.6-8.9) K/mcL BMP 06/23/17 01:00 Sodium 137 Potassium 3.7 Chloride 106 Carbon Dioxide 25 BUN 10 Creatinine 0.89 Glucose 103 Calcium 8.7 Cardiac Enzymes 06/22/17 06/23/17 Range/Units 18:36 01:00 Troponin I 0.04 H* 0.03 (< 0.04) ng/mL Liver Function 06/23/17 Range/Units 01:00 Total Bilirubin 0.9 (0.3-1.0) mg/dL AST 43 H (13-39) Units/L ALT 24 (7-52) Units/L Alkaline Phosphatase 130 H (34-104) Units/L Albumin 3.4 L (3.5-5.7) g/dL Urine 06/22/17 Range/Units 23:15 Urine Color Yellow (Yellow) Urine Clarity Clear (Clear) Urine pH 6.5 (5.0-8.0) pH Units Ur Specific [place] 1.014 (1.010-1.025) Urine Protein 30 H (Neg-Trace) mg/dL Urine Glucose (UA) Normal (Normal) mg/dL - ABG Interpretation ABG results: PT/INR, D-dimer PT 12.3 Seconds (9.4-12.1) H 06/23/17 01:00 - Impressions Impressions Chest X-Ray 06/23/17 08:46 IMPRESSION: Recurrence of a moderate right pneumothorax. Moderate atelectasis in the right lung base. Small caliber chest tube remains in the right mid chest. D/ / Ramez Anand MD / Ramez Anand MD Interpreting Provider: Ramez Anand MD Chest X-Ray 06/23/17 13:13 IMPRESSION: 1. Interval placement of 1 large and 1 small caliber right chest tube. 2. Near complete resolution of right pneumothorax with probable tiny residual in the apical region. 3. Bibasilar infiltrates suggestive of atelectasis. 4. Small amount of subcutaneous emphysema right axillary region. D/ / Bar Foley MD / Bar Foley MD Interpreting Provider: Bar Foley MD - VTE Documentation of Mechanical Device: Intermittent pneumatic compression device Consult Discharge Plan - Plan Referrals: Estela Woodard MD [Primary Care Provider] -
[2017-06-24] MEDS: *HR* Morphine 2 MG/ML SYRINGE IVP PRN ×4 (03:58→23:33)
[2017-06-24] MEDS: *HR* OxyCODONE/APAP 5/325 TABLET PO PRN (08:28)
[2017-06-24] MEDS: amLODIPine 5 MG TABLET PO SCH (08:28)
[2017-06-24] MEDS: UREA 20% TP SCH ×2 (08:28→23:26)
--- NOTE | 2017-06-24 08:33 | Pulmonology Progress Note ---
Date of Encounter: 06/24/17 Time of Encounter: 08:33 Assessment and Plan (1) Spontaneous pneumothorax Current Visit: Yes Status: Acute Secondary spontaneous pneumothorax suspected related to underlying emphysema which is notable bullous disease on CT scan status post large bore chest tube placement and complete evacuation of air will need to remain to suction another day possibility of needing surgical repair/blebectomy/mechanical pleurodesis will defer to surgery for this plan take smallbore chest tube out later today (2) Metastatic carcinoma to lung Current Visit: Yes Status: Acute This is being managed at [facility] Qualifiers: Laterality: unspecified laterality Qualified Code(s): C78.00 - Secondary malignant neoplasm of unspecified lung (3) Former smoker Current Visit: Yes Status: Acute CT scan shows significant emphysematous changes recommend outpatient follow-up with pulmonary for PFTs and medication optimization Subjective Principal diagnosis: PTX Interval history: Physical he is breathing without difficulty. He is upset at being transferred from to [facility] to the stepdown unit overnight is unclear why this happened. Chest tube with some serosanguineous output and airleak positive today Objective PUL Vital signs: Last Vital Signs Temp 97.7 F 06/24/17 07:18 Pulse 70 06/24/17 07:18 Resp 20 06/24/17 07:18 BP 146/86 06/24/17 07:18 Pulse Ox 96 06/24/17 07:18 General appearance: no acute distress Auscultation: right: diminished breath sounds Cardiovascular: regular rate and rhythm Extremities: no edema Results - Laboratory Findings CBC and BMP: 06/23/17 01:00 06/23/17 01:00 PT/INR, D-dimer PT 12.3 Seconds (9.4-12.1) H 06/23/17 01:00 Abnormal lab findings: Abnormal lab results Plt Count 115 K/mcL (140-400) L 06/23/17 01:00 PT 12.3 Seconds (9.4-12.1) H 06/23/17 01:00 Direct Bilirubin 0.4 mg/dL (0.0-0.2) H 06/22/17 06:39 AST 43 Units/L (13-39) H 06/23/17 01:00 Alkaline Phosphatase 130 Units/L (34-104) H 06/23/17 01:00 Albumin 3.4 g/dL (3.5-5.7) L 06/23/17 01:00 Globulin 3.6 g/dL (2.4-3.5) H 06/23/17 01:00 Albumin/Globulin Ratio 0.9 (1.1-2.2) L 06/23/17 01:00 Urine Protein 30 mg/dL (Neg-Trace) H 06/22/17 23:15 - Diagnostic Findings Chest x-ray: report reviewed, image reviewed CT scan - chest: report reviewed, image reviewed - Clinical Findings Intake & Output: Intake & Output 06/23/17 06/24/17 06/24/17 23:59 07:59 15:59 Intake Total 0 / 0 0 / 0 Output Total 129 / 129 104 / 104 Balance -129 / -129 -104 / -104 Weight 78.4 kg - VTE Documentation of Mechanical Device: Intermittent pneumatic compression device Consult Discharge Plan - Plan Referrals: Estela Woodard MD [Primary Care Provider] -
--- NOTE | 2017-06-24 09:30 | Cardiothoracic Progress Note ---
Date of Encounter: 06/24/17 Time of Encounter: 09:28 - Assessment and plan (1) Spontaneous pneumothorax Current Visit: Yes Status: Acute Patient has remained hemodynamically stable. He is breathing comfortably with supplement oxygen. The large-bore chest tube has an air leak on suction. The chest tubes remained to suction until the air leak stops. Today's chest x-ray shows no pneumothorax. The chest x-ray will be repeated in the morning. The assessment and plan as outlined above was discussed with the patient and/or family members who expressed understanding and agreement. All questions were answered. - Subjective Interval history: The patient remained hemodynamically stable overnight. He is breathing comfortably. Vital Signs, Last 4 Hours Temp Pulse Resp BP Pulse Ox 06/24/17 07:18 97.7 F 70 20 146/86 96 Oxgyen Flow Rate Oxygen Flow Rate (LPM) 4 Clinical Data, last 8 Hours Output, Urine Amount 100 Weight 06/22/17 06/23/17 06/24/17 23:59 23:59 23:59 Weight 76.4 kg 78.4 kg - Physical Examination General: Conversant, No Apparent Distress Neck: No JVD, Normal carotid pulses Cardiac: Reg Rate and Rhythm, Normal S1 and S2, No Murmur Incision: No signs of infection, Dry/intact dressing Chest tubes: Minimal drainage, Air leak Lungs: Normal Breath Sounds, No Wheeze, Rales, Rhonchi Neuro: Alert and responsive, No focal deficits noted Vascular: Normal capillary refill Extremities: No Clubbing, No Cyanosis, No Edema - Labs 06/23/17 01:00 06/23/17 01:00 - Imaging Chest Xray: image reviewed (No pneumothorax. Minimal atelectasis/infiltrates.) - VTE Documentation of Mechanical Device: Intermittent pneumatic compression device Consult Discharge Plan - Plan Referrals: Estela Woodard MD [Primary Care Provider] -
[2017-06-24] MEDS: SORAFENIB TOSYLATE 400 MG PO SCH ×2 (11:03→23:26)
--- NOTE | 2017-06-24 11:38 | Internal Med Progress Note ---
Date of Encounter: 06/24/17 Time of Encounter: 08:40 - Assessment and plan (1) Spontaneous pneumothorax Current Visit: Yes Status: Acute Assessment and plan: Right spontaneous pneumothorax - s/p small bore chest tube with incomplete resolution of the pneumothorax CT chest reveals emphysema with bullous disease, patient may need surgical repair/mechanical pleurodesis/blebectomy Pulmonology consult - appreciate input Cardiothoracic consult - large-bore right-sided chest tube placed with near complete resolution of right pneumothorax Repeat chest x-ray tomorrow in a.m. IV Morphine PRN, Percocet PRN Cardiac telemetry, pulse ox, monitor closely (2) Metastatic carcinoma to lung Current Visit: Yes Status: Acute Assessment and plan: Metastatic hepatocellular carcinoma - currently on chemotherapy Follows up at [facility] Qualifiers: Laterality: unspecified laterality Qualified Code(s): C78.00 - Secondary malignant neoplasm of unspecified lung (3) DVT prophylaxis Current Visit: Yes Status: Acute Assessment and plan: Continue SCDs, avoid anticoagulants at this time because of chest tube placement - Time Spent With Patient 25 - 35 minutes - Subjective Interval history: Examined this morning. Patient is awake and alert. Not in any distress. Denies shortness of breath. Complains of mild right sided chest pain at the site of chest tube insertion. No fever. Hemodynamically stable. No other acute events or complaints. States he feels better. Currently sitting up comfortably in bed. Large-bore chest tube has an air leak on suction. Today's chest x-ray does not show any pneumothorax. Chest x-ray will be repeated in the morning. Cardiothoracic surgery and pulmonology following, appreciate input Admitted for spontaneous pneumothorax. Patient also has a history of metastatic carcinoma to lung and follows up at [facility]. CT scan of the chest reveals emphysema and bullous disease. Patient was transferred to because of nurse-patient ratio last night, no other acute events. - Constitutional Vitals: Temp Pulse Resp BP Pulse Ox 97.7 F 71 20 153/83 96 06/24/17 07:18 06/24/17 08:30 06/24/17 07:18 06/24/17 08:30 06/24/17 07:18 General appearance: Present: cooperative, A&O X 3, pleasant, no acute distress, answers questions appropriately - Head Head exam: Present: atraumatic - Eye Eye exam: Present: EOMI - ENT ENT exam: Present: mucous membranes dry - Neck Neck exam general surgery: Present: full ROM - Respiratory Respiratory exam: Present: decreased breath sounds (Slightly decreased in both bases, otherwise clear to auscultation). Absent: accessory muscle use, chest wall tenderness, rales, respiratory distress, rhonchi, wheezes, tachypnea - Cardiovascular Cardiovascular exam: Present: RRR, +S1, +S2 - GI/Abdominal GI/Abdominal exam: Present: soft. Absent: distended, firm, guarding, tenderness - Extremities Exam Extremities exam: Present: radial pulses palpable and symmetrical. Absent: calf tenderness, cyanotic, pedal edema - Neurological Exam Neurological exam: Present: alert, oriented X3, no focal deficits. Absent: facial droop, speech deficit Internal Medicine: Result - Labs CBC & Chem 7: 06/23/17 01:00 06/23/17 01:00 - ABG Interpretation ABG results: PT/INR, D-dimer PT 12.3 Seconds (9.4-12.1) H 06/23/17 01:00 - Impressions Impressions Chest X-Ray 06/23/17 13:13 IMPRESSION: 1. Interval placement of 1 large and 1 small caliber right chest tube. 2. Near complete resolution of right pneumothorax with probable tiny residual in the apical region. 3. Bibasilar infiltrates suggestive of atelectasis. 4. Small amount of subcutaneous emphysema right axillary region. D/ / Bar Foley MD / Bar Foley MD Interpreting Provider: Bar Foley MD Chest CT 06/24/17 00:00 IMPRESSION: 1. Small right pneumothorax with a placed anterior right chest tube terminating adjacent to the anterior junction line in the upper chest. 2. Emphysema. 3. Patchy bibasilar consolidation trace pleural effusions right greater than left which may represent atelectasis and/or pneumonia. 4. Ill-defined hypodensities with suggestion of some biliary ductal dilatation in the right lobe of the liver. Limited evaluation due to absence of IV contrast. Suggest further evaluation with either MRI/MRCP or CT liver mass protocol. D/ / Bar Foley MD / Bar Foley MD Interpreting Provider: Bar Foley MD Chest X-Ray 06/24/17 06:00 IMPRESSION: No evident right-sided pneumothorax. Mild bibasilar atelectasis. Right-sided chest tube appears to have been partially withdrawn. D/ / Ramez Anand MD / Ramez Anand MD Interpreting Provider: Ramez Anand MD - VTE Documentation of Mechanical Device: Intermittent pneumatic compression device Consult Discharge Plan - Plan Referrals: Estela Woodard MD [Primary Care Provider] -
[2017-06-25] MEDS: amLODIPine 5 MG TABLET PO SCH (08:05)
[2017-06-25] MEDS: *HR* Morphine 2 MG/ML SYRINGE IVP PRN ×5 (08:06→23:24)
[2017-06-25] MEDS: UREA 20% TP SCH ×2 (08:12→23:10)
--- NOTE | 2017-06-25 10:02 | Cardiothoracic Progress Note ---
Date of Encounter: 06/25/17 Time of Encounter: 10:01 - Assessment and plan (1) Spontaneous pneumothorax Current Visit: Yes Status: Acute The patient has remained hemodynamically stable. He is breathing comfortably with supplement oxygen. The large-bore chest tube has an air leak on suction. The chest tubes remained to suction until the air leak stops. Today's chest x- ray shows no pneumothorax. The chest x-ray will be repeated in the morning. The assessment and plan as outlined above was discussed with the patient and/or family members who expressed understanding and agreement. All questions were answered. - Subjective Interval history: The patient remained hemodynamically stable overnight. He is breathing comfortably. Vital Signs, Last 4 Hours Temp Pulse Resp BP Pulse Ox 06/25/17 07:54 97.7 F 76 8 135/83 94 Oxgyen Flow Rate Oxygen Flow Rate (LPM) 4 Clinical Data, last 8 Hours Output, Chest Tube Drainage 0 Amount [Right Mid-Axillary Chest #2] Output, Chest Tube Drainage 6 Amount [Right Mid-Axillary Chest #2] Output, Urine Amount 400 Output, Urine Amount 200 Weight 06/23/17 06/24/17 06/25/17 23:59 23:59 23:59 Weight 76.4 kg 78.4 kg 78.9 kg - Physical Examination General: Conversant, No Apparent Distress Neck: No JVD, Normal carotid pulses Cardiac: Reg Rate and Rhythm, Normal S1 and S2, No Murmur Incision: No signs of infection, Dry/intact dressing Chest tubes: Minimal drainage, Air leak Lungs: Normal Breath Sounds, No Wheeze, Rales, Rhonchi Neuro: Alert and responsive, No focal deficits noted Vascular: Normal capillary refill Extremities: No Clubbing, No Cyanosis, No Edema - Labs 06/23/17 01:00 06/23/17 01:00 - Imaging Chest Xray: image reviewed (No pneumothorax. Minimal atelectasis/infiltrates.) - VTE Documentation of Mechanical Device: Intermittent pneumatic compression device Consult Discharge Plan - Plan Referrals: Estela Woodard MD [Primary Care Provider] - (SENT WEB REQUEST ON 06-24-17 @ [id number])
[2017-06-25] MEDS: *HR* OxyCODONE/APAP 5/325 TABLET PO PRN ×2 (10:28→14:54)
[2017-06-25] MEDS: SORAFENIB TOSYLATE 400 MG PO SCH ×2 (10:37→23:11)
--- NOTE | 2017-06-25 14:12 | Electrocardiograph Report ---
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
--- NOTE | 2017-06-25 18:44 | Internal Med Progress Note ---
Date of Encounter: 06/25/17 Time of Encounter: 10:00 - Assessment and plan (1) Spontaneous pneumothorax Current Visit: Yes Status: Acute Assessment and plan: Right spontaneous pneumothorax - s/p small bore chest tube with incomplete resolution of the pneumothorax CT chest reveals emphysema with bullous disease, patient may need surgical repair/mechanical pleurodesis/blebectomy Pulmonology consult - appreciate input Cardiothoracic consult - large-bore right-sided chest tube placed with near complete resolution of right pneumothorax Repeat chest x-ray tomorrow in a.m. 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 Chest tube in place for spontaneous pneumothorax - Constitutional Vitals: Temp Pulse Resp BP Pulse Ox 98.0 F 75 18 132/73 94 06/25/17 17:04 06/25/17 17:04 06/25/17 17:04 06/25/17 17:04 06/25/17 17:04 General appearance: Present: cooperative, A&O X 3, pleasant, no acute distress, answers questions appropriately - Respiratory Respiratory exam: Present: CTAB. Absent: accessory muscle use, rales, rhonchi, wheezes - Cardiovascular Cardiovascular exam: Present: RRR, +S1, +S2. Absent: diastolic murmur, gallop, rubs, systolic murmur Internal Medicine: Result - Labs CBC & Chem 7: 06/23/17 01:00 06/23/17 01:00 - ABG Interpretation ABG results: PT/INR, D-dimer PT 12.3 Seconds (9.4-12.1) H 06/23/17 01:00 - Impressions Impressions Chest X-Ray 06/25/17 06:00 IMPRESSION: No visualized pneumothorax with stable positioning of right chest tube. Bibasilar ground-glass opacities are stable. D/ / James Leung MD / James Leung MD Interpreting Provider: James Leung MD - VTE Documentation of Mechanical Device: Intermittent pneumatic compression device Consult Discharge Plan - Plan Referrals: Estela Woodard MD [Primary Care Provider] - (SENT WEB REQUEST ON 06-24-17 @ [id number])
[2017-06-26] MEDS: *HR* Morphine 2 MG/ML SYRINGE IVP PRN ×3 (04:40→23:24)
[2017-06-26] MEDS: UREA 20% TP SCH ×2 (08:50→23:24)
--- NOTE | 2017-06-26 09:11 | Cardiothoracic Progress Note ---
Date of Encounter: 06/26/17 Time of Encounter: 09:09 - Assessment and plan (1) Spontaneous pneumothorax Current Visit: Yes Status: Acute The patient has remained hemodynamically stable. He is breathing comfortably with supplement oxygen. The chest tube has an air leak on suction. The chest tube should remain on suction until the air leak stops. The assessment and plan as outlined above was discussed with the patient and/or family members who expressed understanding and agreement. All questions were answered. - Subjective Interval history: The patient remained hemodynamically stable overnight. He is breathing comfortably. Vital Signs, Last 4 Hours Temp Pulse Resp BP Pulse Ox 06/26/17 07:22 98.3 F 75 18 133/82 96 Oxgyen Flow Rate Oxygen Flow Rate (LPM) 2 Clinical Data, last 8 Hours Output, Chest Tube Drainage 0 Amount [Right Mid-Axillary Chest #2] Output, Chest Tube Drainage 0 Amount [Right Mid-Axillary Chest #2] Output, Urine Amount 225 Output, Urine Amount 400 Weight 06/24/17 06/25/17 06/26/17 23:59 23:59 23:59 Weight 78.4 kg 78.9 kg 79.3 kg - Physical Examination General: Conversant, No Apparent Distress Neck: No JVD, Normal carotid pulses Cardiac: Reg Rate and Rhythm, Normal S1 and S2, No Murmur Incision: No signs of infection, Dry/intact dressing Chest tubes: Minimal drainage, Air leak Lungs: Normal Breath Sounds, No Wheeze, Rales, Rhonchi Neuro: Alert and responsive, No focal deficits noted Vascular: Normal capillary refill Extremities: No Clubbing, No Cyanosis, No Edema - Labs 06/23/17 01:00 06/23/17 01:00 - Imaging Chest Xray: image reviewed (Small right apical pneumothorax.) - VTE Documentation of Mechanical Device: Intermittent pneumatic compression device Consult Discharge Plan - Plan Referrals: Estela Woodard MD [Primary Care Provider] - 07/05/17 10:45 am ()
[2017-06-26] MEDS: amLODIPine 5 MG TABLET PO SCH (09:27)
[2017-06-26 09:39] LABS: Basophils # 0.1 K/mcL (0.0-0.2); Basophils % 0.7 %; Eosinophils # 0.5 K/mcL (0.0-0.6); Eosinophils % 7.2 %; Hematocrit 42.6 % (37.5-50.1); Hemoglobin 14.7 g/dL (12.9-16.9); Immature Granulocytes % 0.3 % (0-4); Lymphocytes # 0.5 K/mcL (0.6-4.6); Lymphocytes % 7.8 %; Mean Corpuscular HGB Conc 34.5 g/dL (31.6-35.5); Mean Corpuscular Hemoglobin 30.4 pg (28.0-33.3); Mean Corpuscular Volume 88.2 fL (83.0-100.0); Mean Platelet Volume 10.2 fL (9.4-12.4); Monocytes # 0.6 K/mcL (0.0-1.3); Monocytes % 8.2 %; Neutrophils # 5.3 K/mcL (1.6-8.9); Platelet Count 113 K/mcL (140-400); Red Blood Count 4.83 M/mcL (4.19-5.50); Red Cell Distribution Width 14.6 % (11.5-14.5); Segmented Neutrophils % 75.8 %
[2017-06-26] MEDS: *HR* OxyCODONE/APAP 5/325 TABLET PO PRN ×2 (09:44→15:42)
[2017-06-26 09:48] LABS: BUN/Creatinine Ratio 12 (6-26); Blood Urea Nitrogen 11 mg/dL (8-23); Calcium 9.1 mg/dL (8.6-10.3); Carbon Dioxide 28 mEq/L (23-29); Chloride 104 mEq/L (98-107); Glucose 92 mg/dL (70-105); Osmolality,Calculated 283 (280-300); Potassium 4.1 mEq/L (3.5-5.1); Sodium 137 mEq/L (136-145); eGFR For African Americans > 60 (> 60); eGFR For Non-African Americans > 60 (> 60)
[2017-06-26] MEDS: SORAFENIB TOSYLATE 400 MG PO SCH ×2 (10:55→23:24)
--- NOTE | 2017-06-26 18:58 | Internal Med Progress Note ---
Date of Encounter: 06/26/17 Time of Encounter: 11:00 - Assessment and plan (1) Spontaneous pneumothorax Current Visit: Yes Status: Acute Assessment and plan: Right spontaneous pneumothorax - s/p small bore chest tube with incomplete resolution of the pneumothorax CT chest reveals emphysema with bullous disease, patient may need surgical repair/mechanical pleurodesis/blebectomy Pulmonology consult - appreciate input Cardiothoracic consult - large-bore right-sided chest tube placed with near complete resolution of right pneumothorax Repeat chest x-ray tomorrow in a.m. 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 Chest tube in place for spontaneous pneumothorax - Constitutional Vitals: Temp Pulse Resp BP Pulse Ox 99.0 F 79 17 123/80 96 06/26/17 18:38 06/26/17 18:38 06/26/17 18:38 06/26/17 18:38 06/26/17 18:38 General appearance: Present: cooperative, A&O X 3, pleasant, no acute distress, answers questions appropriately - Respiratory Respiratory exam: Present: CTAB. Absent: accessory muscle use, rales, rhonchi, wheezes - Cardiovascular Cardiovascular exam: Present: RRR, +S1, +S2. Absent: diastolic murmur, gallop, rubs, systolic murmur Internal Medicine: Result - Labs CBC & Chem 7: 06/26/17 09:15 06/26/17 09:15 Labs: Short CBC 06/26/17 Range/Units 09:15 WBC 7.0 (4.3-11.1) K/mcL Hgb 14.7 (12.9-16.9) g/dL Hct 42.6 (37.5-50.1) % Plt Count 113 L (140-400) K/mcL Neutrophils # 5.3 (1.6-8.9) K/mcL BMP 06/26/17 09:15 Sodium 137 Potassium 4.1 Chloride 104 Carbon Dioxide 28 BUN 11 Creatinine 0.89 Glucose 92 Calcium 9.1 - ABG Interpretation ABG results: PT/INR, D-dimer PT 12.3 Seconds (9.4-12.1) H 06/23/17 01:00 - Impressions Impressions Chest X-Ray 06/26/17 06:00 IMPRESSION: Small right apical pneumothorax new/ increased from prior comparison study. Chest tube remains in place. D/ / James Leung MD / James Leung MD Interpreting Provider: James Leung MD - VTE Documentation of Mechanical Device: Intermittent pneumatic compression device Consult Discharge Plan - Plan Referrals: Estela Woodard MD [Primary Care Provider] - 07/05/17 10:45 am ()
[2017-06-27] MEDS: *HR* OxyCODONE/APAP 5/325 TABLET PO PRN ×4 (04:34→19:56)
--- NOTE | 2017-06-27 08:06 | Cardiothoracic Progress Note ---
Date of Encounter: 06/27/17 Time of Encounter: 08:04 - Assessment and plan (1) Spontaneous pneumothorax Current Visit: Yes Status: Acute The patient has remained hemodynamically stable. He is breathing comfortably with supplement oxygen. The chest tube has an air leak. The chest tube was placed on waterseal to determinate if the lung would remain inflated. This may help resolve the air leak and help determine if the patient would be a candidate for a Heimlich valve should the air leak persists. Chest x-ray will be repeated in the morning. The assessment and plan as outlined above was discussed with the patient and/or family members who expressed understanding and agreement. All questions were answered. - Subjective Interval history: The patient remained hemodynamically stable overnight. He is breathing comfortably. Vital Signs, Last 4 Hours Temp Pulse Resp BP Pulse Ox 06/27/17 06:52 97.6 F 64 16 116/68 95 06/27/17 04:56 97.9 F 77 17 127/81 94 06/27/17 04:15 71 Oxgyen Flow Rate Oxygen Flow Rate (LPM) 3 Clinical Data, last 8 Hours Output, Chest Tube Drainage 8 Amount [Right Mid-Axillary Chest #2] Output, Chest Tube Drainage 15 Amount [Right Mid-Axillary Chest #2] Output, Urine Amount 650 Output, Urine Amount 350 Weight 06/25/17 06/26/17 06/27/17 23:59 23:59 23:59 Weight 78.9 kg 79.3 kg 78.3 kg - Physical Examination General: Conversant, No Apparent Distress Neck: No JVD, Normal carotid pulses Cardiac: Reg Rate and Rhythm, Normal S1 and S2, No Murmur Incision: No signs of infection, Dry/intact dressing Chest tubes: Minimal drainage, Air leak Lungs: Normal Breath Sounds, No Wheeze, Rales, Rhonchi Neuro: Alert and responsive, No focal deficits noted Vascular: Normal capillary refill Extremities: No Clubbing, No Cyanosis, No Edema - Labs 06/26/17 09:15 06/26/17 09:15 Lab Results, Last 24 hours 06/26/17 06/26/17 09:15 09:15 WBC 7.0 Hgb 14.7 Hct 42.6 Plt Count 113 L Sodium 137 Potassium 4.1 Chloride 104 Carbon Dioxide 28 BUN 11 Creatinine 0.89 Glucose 92 Calcium 9.1 - Imaging Chest Xray: image reviewed (Small right apical pneumothorax, improving.) - VTE Documentation of Mechanical Device: Intermittent pneumatic compression device Consult Discharge Plan - Plan Referrals: Estela Woodard MD [Primary Care Provider] - 07/05/17 10:45 am ()
[2017-06-27] MEDS: UREA 20% TP SCH ×2 (09:11→19:56)
[2017-06-27] MEDS: amLODIPine 5 MG TABLET PO SCH (09:13)
[2017-06-27 09:15] LABS: Basophils # 0.1 K/mcL (0.0-0.2); Basophils % 0.9 %; Eosinophils # 0.6 K/mcL (0.0-0.6); Eosinophils % 10.6 %; Hematocrit 42.4 % (37.5-50.1); Hemoglobin 14.1 g/dL (12.9-16.9); Immature Granulocytes % 0.2 % (0-4); Lymphocytes # 0.7 K/mcL (0.6-4.6); Lymphocytes % 13.4 %; Mean Corpuscular HGB Conc 33.3 g/dL (31.6-35.5); Mean Corpuscular Hemoglobin 29.9 pg (28.0-33.3); Mean Platelet Volume 10.4 fL (9.4-12.4); Monocytes # 0.4 K/mcL (0.0-1.3); Neutrophils # 3.6 K/mcL (1.6-8.9); Nucleated Red Blood Cells 0.6 /100 WBC (0); Platelet Count 111 K/mcL (140-400); Red Blood Count 4.71 M/mcL (4.19-5.50); Red Cell Distribution Width 14.5 % (11.5-14.5); Segmented Neutrophils % 67.9 %
[2017-06-27] MEDS: SORAFENIB TOSYLATE 400 MG PO SCH ×2 (11:03→23:21)
[2017-06-27 16:13] LABS: BUN/Creatinine Ratio 11 (6-26); Blood Urea Nitrogen 10 mg/dL (8-23); Carbon Dioxide 26 mEq/L (23-29); Chloride 104 mEq/L (98-107); Glucose 103 mg/dL (70-105); Osmolality,Calculated 283 (280-300); Potassium 4.1 mEq/L (3.5-5.1); Sodium 137 mEq/L (136-145); eGFR For African Americans > 60 (> 60); eGFR For Non-African Americans > 60 (> 60)
--- NOTE | 2017-06-27 18:51 | Internal Med Progress Note ---
Date of Encounter: 06/27/17 Time of Encounter: 11:00 - Assessment and plan (1) Spontaneous pneumothorax Current Visit: Yes Status: Acute Assessment and plan: Right spontaneous pneumothorax - s/p small bore chest tube with incomplete resolution of the pneumothorax CT chest reveals emphysema with bullous disease, patient may need surgical repair/mechanical pleurodesis/blebectomy Cardiothoracic consult - large-bore right-sided chest tube placed with near complete resolution of right pneumothorax Repeat chest x-ray tomorrow in a.m. 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 Chest tube in place for spontaneous pneumothorax - Constitutional Vitals: Temp Pulse Resp BP Pulse Ox 98.9 F 67 18 137/79 95 06/27/17 16:02 06/27/17 16:02 06/27/17 16:02 06/27/17 16:02 06/27/17 16:02 General appearance: Present: cooperative, A&O X 3, pleasant, no acute distress, answers questions appropriately - Respiratory Respiratory exam: Present: CTAB. Absent: accessory muscle use, rales, rhonchi, wheezes - Cardiovascular Cardiovascular exam: Present: RRR, +S1, +S2. Absent: diastolic murmur, gallop, rubs, systolic murmur Internal Medicine: Result - Labs CBC & Chem 7: 06/27/17 08:44 06/27/17 08:44 Labs: Short CBC 06/27/17 Range/Units 08:44 WBC 5.3 (4.3-11.1) K/mcL Hgb 14.1 (12.9-16.9) g/dL Hct 42.4 (37.5-50.1) % Plt Count 111 L (140-400) K/mcL Neutrophils # 3.6 (1.6-8.9) K/mcL BMP 06/27/17 08:44 Sodium 137 Potassium 4.1 Chloride 104 Carbon Dioxide 26 BUN 10 Creatinine 0.87 Glucose 103 Calcium 9.0 - ABG Interpretation ABG results: PT/INR, D-dimer PT 12.3 Seconds (9.4-12.1) H 06/23/17 01:00 - Impressions Impressions Chest X-Ray 06/27/17 06:00 IMPRESSION: Dense airspace opacification has slightly increased at the right lung base. Pattern may represent edema or pneumonitis. Chest tube stable with tiny right apical pneumothorax. D/ / James Leung MD / James Leung MD Interpreting Provider: James Leung MD - VTE Documentation of Mechanical Device: Intermittent pneumatic compression device Consult Discharge Plan - Plan Referrals: Estela Woodard MD [Primary Care Provider] - 07/05/17 10:45 am ()
[2017-06-28] MEDS: *HR* OxyCODONE/APAP 5/325 TABLET PO PRN ×4 (04:02→20:10)
[2017-06-28] MEDS: amLODIPine 5 MG TABLET PO SCH (07:51)
[2017-06-28] MEDS: UREA 20% TP SCH ×3 (07:52→20:15)
--- NOTE | 2017-06-28 08:58 | Cardiothoracic Progress Note ---
Date of Encounter: 06/28/17 Time of Encounter: 08:57 - Assessment and plan (1) Spontaneous pneumothorax Current Visit: Yes Status: Acute The patient has remained hemodynamically stable. He is breathing comfortably with supplement oxygen. He tolerated waterseal without difficulty yesterday and the chest x-ray shows no recurrence of the pneumothorax. The chest remain on waterseal. The patient should begin ambulating more and I will consult physical therapy to help with strengthening exercises. The assessment and plan as outlined above was discussed with the patient and/or family members who expressed understanding and agreement. All questions were answered. - Subjective Interval history: The patient remained hemodynamically stable overnight. He is breathing comfortably. Vital Signs, Last 4 Hours Temp Pulse Resp BP Pulse Ox 06/28/17 07:08 97.6 F 70 16 113/72 95 Oxgyen Flow Rate Oxygen Flow Rate (LPM) 3 Clinical Data, last 8 Hours Output, Chest Tube Drainage 0 Amount [Right Mid-Axillary Chest #2] Weight 06/26/17 06/27/17 06/28/17 23:59 23:59 23:59 Weight 79.3 kg 78.3 kg 78.4 kg - Physical Examination General: Conversant, No Apparent Distress Neck: No JVD, Normal carotid pulses Cardiac: Reg Rate and Rhythm, Normal S1 and S2, No Murmur Incision: No signs of infection, Dry/intact dressing Chest tubes: Minimal drainage, Air leak Lungs: Normal Breath Sounds, No Wheeze, Rales, Rhonchi Neuro: Alert and responsive, No focal deficits noted Vascular: Normal capillary refill Extremities: No Clubbing, No Cyanosis, No Edema - Labs 06/27/17 08:44 06/27/17 08:44 Lab Results, Last 24 hours 06/27/17 06/27/17 08:44 08:44 WBC 5.3 Hgb 14.1 Hct 42.4 Plt Count 111 L Sodium 137 Potassium 4.1 Chloride 104 Carbon Dioxide 26 BUN 10 Creatinine 0.87 Glucose 103 Calcium 9.0 - Imaging Chest Xray: image reviewed (No pneumothorax. No change in right basilar infiltrate.) - VTE Documentation of Mechanical Device: Intermittent pneumatic compression device Consult Discharge Plan - Plan Referrals: Estela Woodard MD [Primary Care Provider] - 07/05/17 10:45 am ()
--- NOTE | 2017-06-28 09:07 | Discharge Summary ---
Date of Encounter: 07/07/17 Time of Encounter: 10:01 - Discharge Diagnosis (1) Spontaneous pneumothorax Priority: Primary Status: Acute - Discharge Medications Prescriptions: Oxycodone HCl/Acetaminophen [Percocet 5-325 mg Tablet] 1 each PO Q4HR PRN #42 tablet PRN Reason: Pain OxyCODONE/APAP 5/325 [Percocet 5/325 MG] 1 each PO Q4HR PRN #42 tablet PRN Reason: Moderate Pain Chlorhexidine Rinse 15 ml MM BID #8 mouthwash Diltiazem CD (24hr) [Cardizem CD] 120 mg PO DAILY #30 cap.er.24h Levothyroxine [Synthroid] 50 mcg PO 0630 #30 tablet Home Medications: Amlodipine Besylate 10 mg PO DAILY 06/22/17 [History] Sorafenib Tosylate [Nexavar] 400 mg PO BID 06/22/17 [History] Tramadol HCl [Ultram] 50 mg PO Q4H PRN 06/22/17 [History] Urea 1 appl TP BID 06/22/17 [History] Chlorhexidine Rinse 15 ml MM BID #8 mouthwash 07/07/17 [Rx] Diltiazem CD (24hr) [Cardizem CD] 120 mg PO DAILY #30 cap.er.24h 07/07/17 [Rx] Levothyroxine [Synthroid] 50 mcg PO 0630 #30 tablet 07/07/17 [Rx] OxyCODONE/APAP 5/325 [Percocet 5/325 MG] 1 each PO Q4HR PRN #42 tablet 07/07/17 [Rx] Oxycodone HCl/Acetaminophen [Percocet 5-325 mg Tablet] 1 each PO Q4HR PRN #42 tablet 07/07/17 [Rx] Allergies/Adverse Reactions: 3 Allergy/AdvReac Type Severity Reaction Status Date / Time No Known Allergies Allergy Verified 06/22/17 06:14 Date of admission: 06/22/17 12:30 Primary care physician: Estela Woodard Consults: 06/28/17 09:00 Consult to Physical Therapy [CONS] Routine Comment: Evaluate, develop and implement POC Reason for Consult: Range of motion and strengthening exercises 06/23/17 11:11 Consult to Cardiothoracic Surgery [CONS] Stat Consulting Provider: Cardiothoracic Surgery Sandy Reason for Consult: PTX needs Chest Tube Call Completed: Yes Procedure(s) Performed: 1. Right chest tube insertion performed May. 2. Right posterior lateral thoracotomy performed July 01, 2017. 3. Apical bleb resection performed July 01, 2017. 4. Mechanical pleurodesis performed July 01, 2017. Discharging clinician: David Patel Anticipated date of discharge: 07/07/17 - Patient Status Disposition: Home, Self-Care Condition: Good Functional capacity at discharge: independent ambulation Overall status at discharge: patient is progressing back to baseline - Discharge Instructions Follow Up With: Estela Woodard MD [Primary Care Provider] - () - Diet and Activity Activity: sternal precautions, no driving for four weeks, no lifting greater than 10 pounds for eight weeks Diet: advance to your usual diet - Hospital Course Hospital course: Mr. Foster is a 67 year old hypertensive man with a metastatic hepatocellular carcinoma who awoke with right-sided chest pain yesterday. 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 He was evaluated at [facility] emergency department and found to have a right spontaneous pneumothorax. A smallbore chest tube was inserted and the patient had expansion of his right lung. This morning chest x-ray; however, showed an increase in the pneumothorax despite chest tube suction. A 28 Maori chest tube was inserted on June 23, 2017. However, the air leak persisted for 7 days. The patient underwent a trial of waterseal during this time and had an increased size of his right pneumothorax. The patient was recommended for right thoracotomy, apical bleb resection, and mechanical pleurodesis. The patient underwent a right thoracotomy apical bleb resection and mechanical pleurodesis on July 01, 2017. Postoperatively had a small intermittent air leak and chest tube #2; however, the air leak had resolved by POD #3. The chest tubes were removed on POD #4 and the patient was ambulating without complaints of shortness of breath or dyspnea on exertion. The patient was discharged home on POD #6. - Time Spent with Patient Total time spent providing and/or coordinating discharge services: Physical Examination Vital Signs, Last 4 Hours Temp Pulse Resp BP Pulse Ox 06/28/17 07:08 97.6 F 70 16 113/72 95 General: Conversant, No Apparent Distress Neck: No JVD, Normal carotid pulses Cardiac: Reg Rate and Rhythm, Normal S1 and S2, No Murmur Lungs: Normal Breath Sounds, No Wheeze, Rales, Rhonchi Neuro: Alert and responsive, No focal deficits noted Vascular: Normal capillary refill Extremities: No Clubbing, No Cyanosis, No Edema - VTE Documentation of Mechanical Device: Intermittent pneumatic compression device
[2017-06-28] MEDS: SORAFENIB TOSYLATE 400 MG PO SCH ×2 (11:15→20:03)
[2017-06-28] MEDS: *HR* Morphine 2 MG/ML SYRINGE IVP PRN (17:55)
--- NOTE | 2017-06-28 19:05 | Internal Med Progress Note ---
Date of Encounter: 06/28/17 Time of Encounter: 11:00 - Assessment and plan (1) Spontaneous pneumothorax Current Visit: Yes Status: Acute Assessment and plan: Right spontaneous pneumothorax Cardiothoracic consult - large-bore right-sided chest tube placed with resolution of right pneumothorax Repeat chest x-ray tomorrow in a.m. 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 Chest tube in place for spontaneous pneumothorax - Constitutional Vitals: Temp Pulse Resp BP Pulse Ox 98.9 F 79 18 129/73 95 06/28/17 18:31 06/28/17 18:31 06/28/17 18:31 06/28/17 18:31 06/28/17 18:31 General appearance: Present: cooperative, A&O X 3, pleasant, no acute distress, answers questions appropriately Internal Medicine: Result - Labs CBC & Chem 7: 06/27/17 08:44 06/27/17 08:44 - ABG Interpretation ABG results: PT/INR, D-dimer PT 12.3 Seconds (9.4-12.1) H 06/23/17 01:00 - Impressions Impressions Chest X-Ray 06/28/17 06:00 IMPRESSION: Right pneumothorax is no longer visualized. No other significant change. D/ / James Leung MD / James Leung MD Interpreting Provider: James Leung MD - VTE Documentation of Mechanical Device: Intermittent pneumatic compression device Consult Discharge Plan - Plan Referrals: Estela Woodard MD [Primary Care Provider] - 07/05/17 10:45 am ()
[2017-06-29] MEDS: *HR* OxyCODONE/APAP 5/325 TABLET PO PRN ×3 (03:34→22:28)
[2017-06-29] MEDS: amLODIPine 5 MG TABLET PO SCH (07:42)
[2017-06-29] MEDS: UREA 20% TP SCH (07:42)
--- NOTE | 2017-06-29 07:47 | Cardiothoracic Progress Note ---
Date of Encounter: 06/29/17 Time of Encounter: 07:44 - Assessment and plan (1) Spontaneous pneumothorax Current Visit: Yes Status: Acute The patient has remained hemodynamically stable. He is breathing comfortably with supplement oxygen. He tolerated waterseal without difficulty; however, the chest x-ray shows increased size of the right pneumothorax. The chest was placed back on suction. I discussed the possibility of a right thoracotomy and bleb resection to be performed early next week due to the persistent air leak. I have scheduled a family meeting for tomorrow morning to discuss possible right thoracotomy and apical bleb resection. The patient may continue ambulating in the hallways off suction. The assessment and plan as outlined above was discussed with the patient and/or family members who expressed understanding and agreement. All questions were answered. - Subjective Interval history: The patient remained hemodynamically stable overnight. He is breathing comfortably. Vital Signs, Last 4 Hours Temp Pulse Resp BP Pulse Ox 06/29/17 07:33 60 06/29/17 07:10 97.8 F 71 15 137/81 96 Oxgyen Flow Rate Oxygen Flow Rate (LPM) 2 Clinical Data, last 8 Hours Output, Chest Tube Drainage 0 Amount [Right Mid-Axillary Chest #2] Output, Chest Tube Drainage 0 Amount [Right Mid-Axillary Chest #2] Output, Urine Amount 350 Output, Urine Amount 250 Output, Urine Amount 375 Weight 06/27/17 06/28/17 06/29/17 23:59 23:59 23:59 Weight 78.3 kg 78.4 kg 77.9 kg - Physical Examination General: Conversant, No Apparent Distress Neck: No JVD, Normal carotid pulses Cardiac: Reg Rate and Rhythm, Normal S1 and S2, No Murmur Incision: No signs of infection, Dry/intact dressing Chest tubes: Minimal drainage, Air leak Lungs: Normal Breath Sounds (Left lung finch), Decreased breath sounds (Right lung finch) Neuro: Alert and responsive, No focal deficits noted Vascular: Normal capillary refill Extremities: No Clubbing, No Cyanosis, No Edema - Labs 06/27/17 08:44 06/27/17 08:44 - Imaging Chest Xray: image reviewed (Increased size of right pneumothorax.) - VTE Documentation of Mechanical Device: Intermittent pneumatic compression device Consult Discharge Plan - Plan Referrals: Estela Woodard MD [Primary Care Provider] - 07/05/17 10:45 am ()
[2017-06-29 08:52] LABS: Basophils # 0.1 K/mcL (0.0-0.2); Basophils % 1.2 %; Eosinophils # 0.6 K/mcL (0.0-0.6); Eosinophils % 9.6 %; Hemoglobin 15.1 g/dL (12.9-16.9); Immature Granulocytes % 0.3 % (0-4); Lymphocytes # 0.9 K/mcL (0.6-4.6); Lymphocytes % 14.7 %; Mean Corpuscular HGB Conc 34.3 g/dL (31.6-35.5); Mean Corpuscular Hemoglobin 30.5 pg (28.0-33.3); Mean Corpuscular Volume 88.9 fL (83.0-100.0); Mean Platelet Volume 10.5 fL (9.4-12.4); Monocytes # 0.4 K/mcL (0.0-1.3); Monocytes % 7.2 %; Platelet Count 114 K/mcL (140-400); Red Blood Count 4.95 M/mcL (4.19-5.50); Red Cell Distribution Width 14.6 % (11.5-14.5)
[2017-06-29 09:40] LABS: BUN/Creatinine Ratio 13 (6-26); Blood Urea Nitrogen 12 mg/dL (8-23); Calcium 9.3 mg/dL (8.6-10.3); Carbon Dioxide 27 mEq/L (23-29); Chloride 101 mEq/L (98-107); Glucose 83 mg/dL (70-105); Osmolality,Calculated 285 (280-300); Sodium 138 mEq/L (136-145); eGFR For African Americans > 60 (> 60); eGFR For Non-African Americans > 60 (> 60)
[2017-06-29] MEDS: SORAFENIB TOSYLATE 400 MG PO SCH ×2 (11:14→22:26)
--- NOTE | 2017-06-29 19:06 | Internal Med Progress Note ---
Date of Encounter: 06/29/17 Time of Encounter: 11:00 - Assessment and plan (1) Spontaneous pneumothorax Current Visit: Yes Status: Acute Assessment and plan: Right spontaneous pneumothorax Cardiothoracic consult - large-bore right-sided chest tube placed with resolution of right pneumothorax Chest x-ray showed unchanged large right pneumothorax. IV Morphine PRN, Percocet PRN Surgery following. 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 Chest tube in place for spontaneous pneumothorax Chest x-ray showed unchanged large right pneumothorax. - Constitutional Vitals: Temp Pulse Resp BP Pulse Ox 97.8 F 75 18 142/78 97 06/29/17 16:02 06/29/17 15:25 06/29/17 15:25 06/29/17 16:02 06/29/17 16:02 General appearance: Present: cooperative, A&O X 3, pleasant, no acute distress, answers questions appropriately - Respiratory Respiratory exam: Present: CTAB. Absent: accessory muscle use, rales, rhonchi, wheezes - Cardiovascular Cardiovascular exam: Present: RRR, +S1, +S2. Absent: diastolic murmur, gallop, rubs, systolic murmur Internal Medicine: Result - Labs CBC & Chem 7: 06/29/17 08:32 06/29/17 08:32 Labs: Short CBC 06/29/17 Range/Units 08:32 WBC 5.9 (4.3-11.1) K/mcL Hgb 15.1 (12.9-16.9) g/dL Hct 44.0 (37.5-50.1) % Plt Count 114 L (140-400) K/mcL Neutrophils # 4.0 (1.6-8.9) K/mcL BMP 06/29/17 08:32 Sodium 138 Potassium 4.0 Chloride 101 Carbon Dioxide 27 BUN 12 Creatinine 0.91 Glucose 83 Calcium 9.3 - ABG Interpretation ABG results: PT/INR, D-dimer PT 12.3 Seconds (9.4-12.1) H 06/23/17 01:00 - Impressions Impressions Chest X-Ray 06/29/17 06:00 IMPRESSION: Unchanged large right pneumothorax. D/ / 06/29/2017 08:18:30 Tramaine Esposito MD / bcarter Interpreting Provider: Tramaine Esposito MD - VTE Documentation of Mechanical Device: Intermittent pneumatic compression device Consult Discharge Plan - Plan Referrals: Estela Woodard MD [Primary Care Provider] - 07/05/17 10:45 am ()
[2017-06-29] MEDS: *HR* Morphine 2 MG/ML SYRINGE IVP PRN ×2 (19:50→23:39)
[2017-06-30] MEDS: *HR* OxyCODONE/APAP 5/325 TABLET PO PRN ×4 (03:39→20:00)
[2017-06-30] MEDS: amLODIPine 5 MG TABLET PO SCH (07:38)
[2017-06-30] MEDS: UREA 20% TP SCH (09:51)
--- NOTE | 2017-06-30 10:38 | Cardiothoracic Progress Note ---
Date of Encounter: 06/30/17 Time of Encounter: 10:36 - Assessment and plan (1) Spontaneous pneumothorax Current Visit: Yes Status: Acute The patient has remained hemodynamically stable. The pneumothorax resolved on suction; however, the air leak persists.the patient is scheduled for a right thoracotomy apical bleb resection and mechanical pleurodesis in the morning. The assessment and plan as outlined above was discussed with the patient and/or family members who expressed understanding and agreement. All questions were answered. - Subjective Interval history: The patient remained hemodynamically stable overnight. He is breathing comfortably. Vital Signs, Last 4 Hours Temp Pulse Resp BP Pulse Ox 06/30/17 07:35 74 06/30/17 07:00 97.7 F 72 18 128/90 93 Oxgyen Flow Rate Oxygen Flow Rate (LPM) 2 Clinical Data, last 8 Hours Output, Chest Tube Drainage 0 Amount [Right Mid-Axillary Chest #2] Output, Urine Amount 350 Output, Urine Amount 200 Weight 06/28/17 06/29/17 06/30/17 23:59 23:59 23:59 Weight 78.4 kg 77.9 kg 78.8 kg - Physical Examination General: Conversant, No Apparent Distress Neck: No JVD, Normal carotid pulses Cardiac: Reg Rate and Rhythm, Normal S1 and S2, No Murmur Incision: No signs of infection, Dry/intact dressing Chest tubes: Minimal drainage, Air leak Lungs: Normal Breath Sounds, No Wheeze, Rales, Rhonchi Neuro: Alert and responsive, No focal deficits noted Vascular: Normal capillary refill Extremities: No Clubbing, No Cyanosis, No Edema - Labs 06/29/17 08:32 06/29/17 08:32 - Imaging Chest Xray: image reviewed (No pneumothorax.) - VTE Documentation of Mechanical Device: Intermittent pneumatic compression device Consult Discharge Plan - Plan Referrals: Estela Woodard MD [Primary Care Provider] - 07/05/17 10:45 am ()
[2017-06-30] MEDS: Chlorhexidine Rinse 15 ML MOUTHWASH MM SCH ×2 (11:17→20:00)
[2017-06-30] MEDS: SORAFENIB TOSYLATE 400 MG PO SCH ×2 (11:17→23:17)
--- NOTE | 2017-06-30 19:20 | Internal Med Progress Note ---
Date of Encounter: 06/30/17 Time of Encounter: 11:00 - Assessment and plan (1) Spontaneous pneumothorax Current Visit: Yes Status: Acute Assessment and plan: Right spontaneous pneumothorax Cardiothoracic consult - large-bore right-sided chest tube placed with resolution of right pneumothorax Chest x-ray showed unchanged large right pneumothorax. IV Morphine PRN, Percocet PRN Surgery following. 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 Chest tube in place for spontaneous pneumothorax Chest x-ray showed unchanged large right pneumothorax. - Constitutional Vitals: Temp Pulse Resp BP Pulse Ox 97.6 F 70 16 134/73 94 06/30/17 19:00 06/30/17 19:00 06/30/17 19:00 06/30/17 19:00 06/30/17 15:49 General appearance: Present: cooperative, A&O X 3, pleasant, no acute distress, answers questions appropriately - Respiratory Respiratory exam: Present: CTAB. Absent: accessory muscle use, rales, rhonchi, wheezes - Cardiovascular Cardiovascular exam: Present: RRR, +S1, +S2. Absent: diastolic murmur, gallop, rubs, systolic murmur Internal Medicine: Result - Labs CBC & Chem 7: 06/29/17 08:32 06/29/17 08:32 - ABG Interpretation ABG results: PT/INR, D-dimer PT 12.3 Seconds (9.4-12.1) H 06/23/17 01:00 - Impressions Impressions Chest X-Ray 06/30/17 06:00 IMPRESSION: 1. No evidence of a right pneumothorax status post chest tube. D/ / James Merino MD / James Merino MD Interpreting Provider: James Merino MD - VTE Documentation of Mechanical Device: Intermittent pneumatic compression device Consult Discharge Plan - Plan Referrals: Estela Woodard MD [Primary Care Provider] - 07/05/17 10:45 am ()
[2017-07-01] MEDS: *HR* OxyCODONE/APAP 5/325 TABLET PO PRN (00:04)
[2017-07-01] MEDS ORDERED: ceFAZolin 2,000 MG in Water for inj. (sterile) 20 ML IVP ONE (07:00)
[2017-07-01] MEDS ORDERED: Lidocaine Drip 2 GM/500 ML IV.SOLN IVC ONE (07:36)
[2017-07-01] MEDS ORDERED: *HR* Phenylephrine 10 MG/ML VIAL ONE (07:36)
[2017-07-01] MEDS ORDERED: *HR* Rocuronium Bromide 50 MG/5 ML VIAL ONE (07:36)
[2017-07-01] MEDS ORDERED: *HR* Midazolam HCl 5 MG/5 ML VIAL IVP ONE (07:37)
[2017-07-01] MEDS ORDERED: *HR* Propofol 200 MG/20 ML VIAL IVP ONE (07:37)
[2017-07-01] MEDS ORDERED: *HR* FentaNYL (PF) 250 MCG/5 ML VIAL ONE (07:37)
[2017-07-01] MEDS ORDERED: Heparin 1,000 UNITS/500 mL 500 ML ONE (07:44)
--- NOTE | 2017-07-01 07:57 | Anesthesia Evaluation PreOp ---
Date of Encounter: 07/01/17 Time of Encounter: 07:53 - Past History Planned Operation: right thoracotomy with bleb resection Cardiac History: HTN Pulmonary History: Former smoker, COPD DOCUMENTATION COORDINATOR History: Denies Any Significant HX Other Medical History: Hepatic (liver cancer) Anesthesia History: No Prior Anesthetic Complications, Past Anesthesia Alcohol Use: none Drug use: none Medications and Allergies Amlodipine Besylate [Amlodipine Besylate] 10 mg PO DAILY 06/22/17 [History] Sorafenib Tosylate [Nexavar] 400 mg PO BID 06/22/17 [History] Tramadol HCl [Ultram] 50 mg PO Q4H PRN 06/22/17 [History] Urea [Urea] 1 appl TP BID 06/22/17 [History] 3 Allergy/AdvReac Type Severity Reaction Status Date / Time No Known Allergies Allergy Verified 06/22/17 06:14 - Meds/Allergy Pre-op Review Medications Reviewed: Yes Allergies Reviewed: Yes Beta Blockers on Current Med List: No Anesthesia Results - Labs 06/29/17 08:32 06/29/17 08:32 Anesthesia Exam Selected Entries 07/01/17 03:35 07/01/17 07:07 Temperature 97.7 F Pulse Rate 78 Respiratory Rate 18 Blood Pressure 141/86 O2 Sat by Pulse Oximetry 94 Oxygen Delivery Method Room Air Weight: 79kg NPO (# of Hours): 8 - HEENT Pupil (Motor): EOMI, Abnormal (left eye cataract) Mallampati: II Teeth: Edentulous (upper) Denture Type: Upper: Complete Oral Opening: Greater than 3 - DOCUMENTATION COORDINATOR LOC: Oriented DOCUMENTATION COORDINATOR Motor: Normal RUE, Normal LUE, Normal RLE, Normal LLE, Normal Face DOCUMENTATION COORDINATOR Sensory: Normal: RUE, LUE, RLE, LLE, Face - Cardiac Rhythm: Regular Murmur: None - Pulmonary Breath Sounds: bilateral Clear Respiratory Effort: Symmetrical Anesthesia Assess/Plan ASA Score: 4 Modified Cynthia Scale for Level of Consciousness: Cooperative, oriented, and tranquil Anesthetic Plan: General Autologous Blood: Yes Monitoring Plan: A-Line Recovery Plan: PACU (agrees to GA, a-line and epidural)
--- NOTE | 2017-07-01 09:12 | Anesthesia Procedures ---
Date of Encounter: 07/01/17 Time of Encounter: 08:30 Procedures: Anesthesia - Arterial Line Consent obtained: written consent Time out performed: Yes Sedation: Versed (mg): 3 Local Anesthetic: Lidocaine 1% Amount of Anesthetic used (mls): 0.5 Size (Gauge): 20 Length (inches): 1 3/4 Technique Used: sterile prep, guide wire technique, direct puncture technique Post-Procedure: line taped into place, dry sterile dressing placed Patient tolerated procedure: well, no complications Complications: none Site: Radial L (attempt x 1) - Epidural/Spinal Patient ID/Chart reviewed: Yes Patient examined: Yes Supplemental Oxygen: Nasal Cannula Supplemental Oxygen Rate (L/min): 2 Sedation: Versed (mg): 3 Site Prep: Aseptic Technique, Sterile prep and drape, Povidone-Iodine 1% Patient position: upright Local Anesthetic: Lidocaine 1% Amount of Local Anesthetic used: 3 Touhy Needle Gauge: 18 Test Dose (1.5% Lido + Epi): Volume given (mls): 3 Test Dose Result: Negative Loading Dose: 0.25% Marcaine (mls): 9 Loading Dose: Fentanyl (mcg): 50 Loading Dose Administered: Thru Catheter Catheter Secured in Place: Tegaderm Interspace Used: T5-T6 Loss of Resistance (ROBINSON): Yes Blood: No CSF: No Paresthesia: No Procedure: patient sitting. Good ROBINSON, catheter feeds easily into space, negative test dose. Catheter in approx 5cm. Infusion of Duramorph and bupivacaine
[2017-07-01] MEDS ORDERED: Dexamethasone 4 MG/ML VIAL ONE (09:15)
[2017-07-01] MEDS ORDERED: Ondansetron 4 MG/2 ML VIAL ONE (09:15)
[2017-07-01] MEDS ORDERED: *HR* Promethazine 25 MG/ML VIAL IVP PRN (10:22)
--- NOTE | 2017-07-01 10:36 | Operative Note ---
Date of procedure: 07/01/17 Pre-op diagnosis: Persistent right spontaneous pneumothorax Post-op diagnosis: same Procedure: 1. Right posterior lateral thoracotomy. 2. Apical bleb resection. 3. Mechanical pleurodesis. Implants: None. Complications: None. Anesthesia: LIA Surgeon: David Patel Was there an assistant producer present: No Estimated blood loss (cc): 20 Specimen: Right upper lobe apical blebs Condition: stable Disposition: ICU Procedure in Detail: INDICATIONS FOR OPERATION: The patient is a 67 year old hypertensive man with a metastatic hepatocellular carcinoma who awoke with right-sided chest pain yesterday. 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 He was evaluated at [facility] emergency department and found to have a right spontaneous pneumothorax. A smallbore chest tube was inserted and the patient had expansion of his right lung. This morning chest x-ray; however, showed an increase in the pneumothorax despite chest tube suction. A 28 Stateless chest tube was inserted by myself; however, the air leak is persistent for 7 days. The patient underwent a trial of waterseal during this time and had an increased size of his right pneumothorax. The patient was recommended for right thoracotomy, apical bleb resection, and mechanical pleurodesis. FINDINGS AT OPERATION: The patient had numerous large right upper lobe apical blebs. No other pathology was noted. DESCRIPTION OF OPERATION: After obtaining informed consent for the patient, he was taken to the operating room where satisfactory general endotracheal anesthetic was induced. Appropriate monitoring lines were placed and a double-lumen endotracheal tube was inserted. The patient was turned in the left lateral decubitus position and his right lateral chest was prepped and draped in a sterile fashion. A standard right posterolateral thoracotomy incision was then made through the skin and subcutaneous tissue. The latissimus dorsi muscle group was divided and the serratus anterior muscle group was reflected medially. The fourth intercostal space was identified and the intercostal muscles divided. The ribs were then and a general exploration was performed. The patient had several adhesions between the lateral wall of the right upper lobe and the chest wall. These were taken down using electrocautery. Numerous right upper lobe apical blebs were noted. These were resected with a DANIELLE 70 stapling device. Saline solution was then placed in the right hemithorax and the right lung was inflated. No air leaks were noted. A mechanical pleurodesis was then performed by vigorously rubbing the pericardium with 4 x 4 sponges and lap sponges. A 32 Stateless chest tube was then placed posteriorly and the chest tube that the patient had at the beginning of the operation was positioned anteriorly. The ribs were reapproximated using #1 Vicryl suture and the serratus anterior muscle group, latissimus dorsi muscle group, subcutaneous tissue, and skin edges were reapproximated using running Vicryl sutures. Sterile dressings were applied. The patient was transferred to the ICU in satisfactory postoperative condition. There were no intraoperative complications. And the instrument, needle, and sponge count were correct at end of operation.
[2017-07-01] MEDS: *HR* HYDROmorphone 2 MG/ML SYRINGE IVP PRN ×4 (11:01→23:14)
[2017-07-01] MEDS: Albuterol 2.5 MG/3 ML NEBULIZER IH SCH ×4 (11:10→23:49)
[2017-07-01 11:17] LABS: Basophils # 0.1 K/mcL (0.0-0.2); Basophils % 0.7 %; Eosinophils # 0.2 K/mcL (0.0-0.6); Eosinophils % 2.9 %; Hematocrit 42.2 % (37.5-50.1); Hemoglobin 14.5 g/dL (12.9-16.9); Immature Granulocytes % 0.3 % (0-4); Lymphocytes # 0.6 K/mcL (0.6-4.6); Lymphocytes % 9.2 %; Mean Corpuscular HGB Conc 34.4 g/dL (31.6-35.5); Mean Corpuscular Hemoglobin 30.3 pg (28.0-33.3); Mean Corpuscular Volume 88.3 fL (83.0-100.0); Mean Platelet Volume 10.3 fL (9.4-12.4); Monocytes # 0.2 K/mcL (0.0-1.3); Monocytes % 2.3 %; Neutrophils # 5.8 K/mcL (1.6-8.9); Platelet Count 112 K/mcL (140-400); Red Blood Count 4.78 M/mcL (4.19-5.50); Red Cell Distribution Width 14.7 % (11.5-14.5); Segmented Neutrophils % 84.6 %
[2017-07-01] MEDS: Morphine Sulfate/PF 10mg/10mL 10 MG, Bupivacaine-MPF 0.25% 125 ML in 0.9 % Sodium Chlor... EP SCH (11:47)
[2017-07-01] MEDS: Chlorhexidine Rinse 15 ML MOUTHWASH MM SCH ×2 (11:53→20:15)
[2017-07-01] MEDS: amLODIPine 5 MG TABLET PO SCH (12:13)
[2017-07-01] MEDS: 0.9 % Sodium Chloride w KCl 20 MEQ/1,000 ML MLS IVC SCH (12:14)
[2017-07-01] MEDS: SORAFENIB TOSYLATE 400 MG PO SCH ×2 (12:16→23:04)
[2017-07-01] MEDS: UREA 20% TP SCH (14:59)
[2017-07-01 15:00] LABS: BUN/Creatinine Ratio 14 (6-26); Blood Urea Nitrogen 12 mg/dL (8-23); Calcium 8.7 mg/dL (8.6-10.3); Carbon Dioxide 24 mEq/L (23-29); Chloride 105 mEq/L (98-107); Glucose 111 mg/dL (70-105); Osmolality,Calculated 280 (280-300); Potassium 4.1 mEq/L (3.5-5.1); Sodium 135 mEq/L (136-145); eGFR For African Americans > 60 (> 60); eGFR For Non-African Americans > 60 (> 60)
[2017-07-01 15:04] LABS: ABG Base Excess -1 mEq/L (-2 to 3); ABG HCO3 25 mEq/L (21-27); ABG Oxygen Saturation 95 % (95-98); ABG PCO2 43 mmHg (35-45); ABG PH 7.37 pH Units (7.32-7.45); ABG PO2 76 mmHg (85-104); ABG TCO2 26 mEq/L (20-26)
[2017-07-01] MEDS: CeFAZolin Premix DUPLEX 2,000 MG/50 ML BAG IVPB SCH (16:43)
--- NOTE | 2017-07-01 17:27 | Internal Med Progress Note ---
Date of Encounter: 07/01/17 Time of Encounter: 11:00 - Assessment and plan (1) Spontaneous pneumothorax Current Visit: Yes Status: Acute Assessment and plan: Persistent spontaneous pneumothorax status post right posterior lateral thoracotomy on 07/01/17 followed by cardiothoracic surgery. (2) Metastatic carcinoma to lung Current Visit: Yes Status: Acute Assessment and plan: Metastatic hepatocellular carcinoma - currently on chemotherapy Follows up at [facility] Qualifiers: Laterality: right Qualified Code(s): C78.01 - Secondary malignant neoplasm of right lung (3) DVT prophylaxis Current Visit: Yes Status: Acute Assessment and plan: Continue SCDs, avoid anticoagulants at this time because of chest tube placement - Subjective Interval history: Patient with persistent spontaneous pneumothorax status post right posterior lateral thoracotomy on 07/01/17 followed by cardiothoracic surgery. - Constitutional Vitals: Temp Pulse Resp BP Pulse Ox 97.8 F 80 16 123/70 92 07/01/17 16:06 07/01/17 16:00 07/01/17 16:00 07/01/17 16:00 07/01/17 16:00 General appearance: Present: cooperative, A&O X 3, pleasant, no acute distress, answers questions appropriately Internal Medicine: Result - Labs CBC & Chem 7: 07/01/17 11:04 07/01/17 14:39 Labs: Short CBC 07/01/17 Range/Units 11:04 WBC 6.9 (4.3-11.1) K/mcL Hgb 14.5 (12.9-16.9) g/dL Hct 42.2 (37.5-50.1) % Plt Count 112 L (140-400) K/mcL Neutrophils # 5.8 (1.6-8.9) K/mcL BMP 07/01/17 14:39 Sodium 135 L Potassium 4.1 Chloride 105 Carbon Dioxide 24 BUN 12 Creatinine 0.84 Glucose 111 H Calcium 8.7 - ABG Interpretation ABG results: ABG ABG pH 7.37 pH Units (7.32-7.45) 07/01/17 15:01 ABG pCO2 43 mmHg (35-45) 07/01/17 15:01 ABG pO2 76 mmHg (85-104) L 07/01/17 15:01 ABG O2 Saturation 95 % (95-98) 07/01/17 15:01 PT/INR, D-dimer PT 12.3 Seconds (9.4-12.1) H 06/23/17 01:00 - Impressions Impressions Chest X-Ray 07/01/17 10:37 IMPRESSION: There are 2 left-sided chest tubes present which appear to be repositioned as compared to prior exam. No pneumothorax is noted. Remainder of the exam appears stable. D/ / 07/01/2017 11:04:23 Prince Paul MD / [email or web address] Interpreting Provider: Prince Paul MD - VTE Documentation of Mechanical Device: Intermittent pneumatic compression device Consult Discharge Plan - Plan Referrals: Estela Woodard MD [Primary Care Provider] - 07/05/17 10:45 am ()
[2017-07-02] MEDS: CeFAZolin Premix DUPLEX 2,000 MG/50 ML BAG IVPB SCH (00:17)
[2017-07-02] MEDS: *HR* HYDROmorphone 2 MG/ML SYRINGE IVP PRN ×3 (03:40→15:39)
[2017-07-02] MEDS: Albuterol 2.5 MG/3 ML NEBULIZER IH SCH ×6 (03:46→23:45)
[2017-07-02 03:51] LABS: ABG Base Excess -3 mEq/L (-2 to 3); ABG HCO3 22 mEq/L (21-27); ABG Oxygen Saturation 93 % (95-98); ABG PCO2 40 mmHg (35-45); ABG PH 7.36 pH Units (7.32-7.45); ABG PO2 71 mmHg (85-104); ABG TCO2 24 mEq/L (20-26); Blood Gas FiO2 4.5 (1-15=lpm or21-100=%)
[2017-07-02 07:53] LABS: Basophils % 0.1 %; Hematocrit 40.4 % (37.5-50.1); Hemoglobin 13.6 g/dL (12.9-16.9); Immature Granulocytes % 0.4 % (0-4); Lymphocytes # 0.7 K/mcL (0.6-4.6); Lymphocytes % 5.7 %; Mean Corpuscular HGB Conc 33.7 g/dL (31.6-35.5); Mean Corpuscular Hemoglobin 30.2 pg (28.0-33.3); Mean Corpuscular Volume 89.8 fL (83.0-100.0); Mean Platelet Volume 10.5 fL (9.4-12.4); Monocytes # 0.8 K/mcL (0.0-1.3); Monocytes % 6.6 %; Platelet Count 120 K/mcL (140-400); Red Cell Distribution Width 14.9 % (11.5-14.5); Segmented Neutrophils % 87.2 %
[2017-07-02 07:54] LABS: BUN/Creatinine Ratio 20 (6-26); Blood Urea Nitrogen 21 mg/dL (8-23); Calcium 8.5 mg/dL (8.6-10.3); Carbon Dioxide 20 mEq/L (23-29); Chloride 104 mEq/L (98-107); Glucose 107 mg/dL (70-105); Osmolality,Calculated 283 (280-300); Potassium 4.4 mEq/L (3.5-5.1); Sodium 135 mEq/L (136-145); eGFR For African Americans > 60 (> 60); eGFR For Non-African Americans > 60 (> 60)
[2017-07-02] MEDS: 0.9 % Sodium Chloride w KCl 20 MEQ/1,000 ML MLS IVC SCH (08:19)
[2017-07-02] MEDS: amLODIPine 5 MG TABLET PO SCH (09:09)
[2017-07-02] MEDS: Chlorhexidine Rinse 15 ML MOUTHWASH MM SCH ×2 (09:09→20:32)
[2017-07-02] MEDS: UREA 20% TP SCH (09:10)
--- NOTE | 2017-07-02 09:32 | Cardiothoracic Progress Note ---
Date of Encounter: 07/02/17 Time of Encounter: 09:30 - Assessment and plan (1) Spontaneous pneumothorax Current Visit: Yes Status: Acute The assessment and plan as outlined above was discussed with the patient and/or family members who expressed understanding and agreement. All questions were answered. The patient has a small air leak. Chest x-ray reveals a small apical pneumothorax. We will transfer him to the floor. - Subjective Interval history: The patient complains of mild postoperative pain which is controlled with his epidural catheter. Vital Signs, Last 4 Hours Temp Pulse Resp BP Pulse Ox 07/02/17 08:25 16 96 07/02/17 08:00 82 16 149/66 95 07/02/17 07:37 98.0 F 07/02/17 07:00 85 16 122/63 91 07/02/17 06:00 75 12 117/47 92 Oxgyen Flow Rate Oxygen Flow Rate (LPM) 4 Clinical Data, last 8 Hours Output, Chest Tube Drainage 10 Amount [Right Mid-Axillary Chest #3] Output, Chest Tube Drainage 20 Amount [Right Mid-Axillary Chest #3] Output, Chest Tube Drainage 0 Amount [Right Mid-Axillary Chest #2] Output, Chest Tube Drainage 10 Amount [Right Mid-Axillary Chest #2] Weight 06/30/17 07/01/17 07/02/17 23:59 23:59 23:59 Weight 78.8 kg 78.9 kg 87.1 kg Lungs are clear to percussion and auscultation. Heart is in a regular rate and rhythm. Chest tube drainage is minimal. There is a small air leak. - Labs 07/02/17 07:30 07/02/17 07:30 Lab Results, Last 24 hours 07/01/17 07/01/17 07/02/17 11:04 14:39 07:30 WBC 6.9 11.5 H D Hgb 14.5 13.6 Hct 42.2 40.4 Plt Count 112 L 120 L Sodium 135 L Potassium 4.1 Chloride 105 Carbon Dioxide 24 BUN 12 Creatinine 0.84 Glucose 111 H Calcium 8.7 07/02/17 07:30 WBC Hgb Hct Plt Count Sodium 135 L Potassium 4.4 Chloride 104 Carbon Dioxide 20 L BUN 21 Creatinine 1.07 Glucose 107 H Calcium 8.5 L - VTE Documentation of Mechanical Device: Intermittent pneumatic compression device Consult Discharge Plan - Plan Referrals: Estela Woodard MD [Primary Care Provider] - 07/05/17 10:45 am ()
[2017-07-02] MEDS: SORAFENIB TOSYLATE 400 MG PO SCH ×2 (11:14→22:19)
--- NOTE | 2017-07-02 14:59 | Anesthesia Evaluation Post Op ---
Date of Encounter: 07/02/17 Time of Encounter: 14:55 - Vital Signs Vital Signs: Selected Entries 07/02/17 11:53 07/02/17 14:00 Temperature 97.6 F Pulse Rate 80 Respiratory Rate 18 Blood Pressure 145/64 O2 Sat by Pulse Oximetry 92 Oxygen Flow Rate (LPM) 4 Oxygen Delivery Method Nasal Cannula - Lungs Lungs: Clear Ascult./Percussion - Airway Airway: Non-obstructed - Cardiovascular Regular Rate - Mental Status Mental Status: Alert & Oriented, Answers Appropriately - Pain Pain Scale: 6 (shoulder pain) Pain Scale used: Numeric (1 - 10) - Nausea Vomiting Nausea Vomiting: Not Present - Hydration Hydration: Tolerates oral liquids, Levine catheter Notes: 07/02/17 14:56 Patient c/o right shoulder pain probably referred from chest tubes. Epidural pump running at 8cc/hr, still wanting iv Dilaudid. Sat up in chair most of the morning. Patient appears quite comfortable, no grimacing with movement. Epidural site intact without redness or drainage. Will continue epidural until Chest tubes out or until Saturday.
--- NOTE | 2017-07-02 18:02 | Internal Med Progress Note ---
Date of Encounter: 07/02/17 Time of Encounter: 12:20 - Assessment and plan (1) Spontaneous pneumothorax Current Visit: Yes Status: Acute Assessment and plan: Status post chest tube placement and right posterior lateral thoracotomy with apical bleb resection and mechanical pleurodesis. Chest x-ray done today shows slight increase in size of right apical pneumothorax. Chest tube in place. Cardiothoracic surgery following. Patient remains at high risk for complications. (2) Metastatic carcinoma to lung Current Visit: Yes Status: Acute Assessment and plan: Patient will continue with his treatment for this post discharge. Qualifiers: Laterality: right Qualified Code(s): C78.01 - Secondary malignant neoplasm of right lung (3) DVT prophylaxis Current Visit: Yes Status: Acute Assessment and plan: On SCDs. Not receiving anticoagulants at this time due to presence of chest and surgery yesterday with increased risk for hemothorax. - Subjective Interval history: Patient is doing well. Pain is controlled with epidural Dilaudid. Sitting up in chair. Does report pain mainly in the right sided chest wall. No other acute complaints at this time. - Constitutional Vitals: Temp Pulse Resp BP Pulse Ox 98.0 F 83 17 153/66 90 07/02/17 16:00 07/02/17 16:00 07/02/17 16:05 07/02/17 16:00 07/02/17 16:05 General appearance: Present: cooperative, A&O X 3, pleasant, no acute distress, answers questions appropriately - Neck Neck exam general surgery: Present: supple, trachea midline. Absent: lymphadenopathy - Respiratory Respiratory exam: Present: decreased breath sounds (Right apex). Absent: accessory muscle use, rales, rhonchi, wheezes - Cardiovascular Cardiovascular exam: Present: RRR, +S1, +S2. Absent: diastolic murmur, gallop, rubs, systolic murmur - GI/Abdominal GI/Abdominal exam: Present: normal bowel sounds, soft, no peritoneal signs. Absent: distended, tenderness - Extremities Exam Extremities exam: Present: warm, radial pulses palpable and symmetrical. Absent : calf tenderness, cyanotic, pedal edema - Neurological Exam Neurological exam: Present: CN II-XII intact, oriented X3, no focal deficits. Absent: facial droop, speech deficit Internal Medicine: Result - Labs CBC & Chem 7: 07/02/17 07:30 07/02/17 07:30 Labs: Short CBC 07/02/17 Range/Units 07:30 WBC 11.5 H D (4.3-11.1) K/mcL Hgb 13.6 (12.9-16.9) g/dL Hct 40.4 (37.5-50.1) % Plt Count 120 L (140-400) K/mcL Neutrophils # 10.0 H (1.6-8.9) K/mcL BMP 07/02/17 07:30 Sodium 135 L Potassium 4.4 Chloride 104 Carbon Dioxide 20 L BUN 21 Creatinine 1.07 Glucose 107 H Calcium 8.5 L - ABG Interpretation ABG results: ABG ABG pH 7.36 pH Units (7.32-7.45) 07/02/17 03:47 ABG pCO2 40 mmHg (35-45) 07/02/17 03:47 ABG pO2 71 mmHg (85-104) L 07/02/17 03:47 ABG O2 Saturation 93 % (95-98) L 07/02/17 03:47 PT/INR, D-dimer PT 12.3 Seconds (9.4-12.1) H 06/23/17 01:00 - Impressions Impressions Chest X-Ray 07/02/17 06:00 IMPRESSION: Repositioning of the subpulmonic right-sided chest tube since the previous exam with slight interval increase in size of a right apical pneumothorax now measuring 1.8 cm. D/ / Jaime Peter MD / Jaime Peter MD Interpreting Provider: Jaime Peter MD - VTE Documentation of Mechanical Device: Intermittent pneumatic compression device Consult Discharge Plan - Plan Referrals: Estela Woodard MD [Primary Care Provider] - ()
[2017-07-02] MEDS: Morphine Sulfate/PF 10mg/10mL 10 MG, Bupivacaine-MPF 0.25% 125 ML in 0.9 % Sodium Chlor... EP SCH (19:34)
[2017-07-02] MEDS ORDERED: 0.9 % Sodium Chloride w KCl 20 MEQ/1,000 ML MLS IVC SCH (19:35)
[2017-07-02] MEDS ORDERED: Mag Hydrox/Al Hydrox/Simeth 30 ML UDC PO PRN (19:35)
[2017-07-02] MEDS ORDERED: Acetaminophen 325 MG TABLET PO PRN (19:35)
[2017-07-02] MEDS ORDERED: Ondansetron ODT 4 MG TAB.RAPDIS SL PRN (19:35)
[2017-07-02] MEDS ORDERED: *HR* Promethazine 25 MG/ML VIAL IVP PRN (19:35)
[2017-07-02] MEDS ORDERED: Naloxone 0.4 MG/ML INJ IVP PRN (19:35)
[2017-07-02] MEDS ORDERED: Morphine Sulfate/PF 10mg/10mL 10 MG, Bupivacaine-MPF 0.25% 125 ML in 0.9 % Sodium Chlor... EP SCH (19:35)
[2017-07-02] MEDS: *HR* HYDROmorphone (PF) 1 MG/ML SYRINGE IVP PRN ×2 (19:56→22:19)
[2017-07-03] MEDS: Patient Taking Own Medication 1 EACH PO SCH ×3 (00:10→23:16)
[2017-07-03] MEDS: *HR* HYDROmorphone (PF) 1 MG/ML SYRINGE IVP PRN ×11 (00:13→22:43)
[2017-07-03] MEDS: Albuterol 2.5 MG/3 ML NEBULIZER IH SCH ×6 (03:59→23:56)
--- NOTE | 2017-07-03 06:25 | Event Note ---
Date of Encounter: 07/03/17 Time of Encounter: 06:00 Called by RN pt developped A Fib RVR. Present bedside. Pt feels fine, denies chest pain or SOB. BP 130/80. Give cardizem 15mg iv once, rhythm cannot be converted to sinus. Will start cardizem drip. Consult cardio in AM for new onset A Fib RVR. Check Mg and TSH stat. Order echo. AC decision will be made by cardio.
[2017-07-03] MEDS ORDERED: dilTIAZem HCl 100 MG in D5% in Water 50 ML IVC SCH (06:30)
[2017-07-03 07:49] LABS: BUN/Creatinine Ratio 21 (6-26); Blood Urea Nitrogen 17 mg/dL (8-23); Calcium 8.3 mg/dL (8.6-10.3); Carbon Dioxide 20 mEq/L (23-29); Chloride 109 mEq/L (98-107); Magnesium 1.5 mg/dL (1.6-2.6); Potassium 4.2 mEq/L (3.5-5.1); Sodium 134 mEq/L (136-145); eGFR For African Americans > 60 (> 60); eGFR For Non-African Americans > 60 (> 60)
[2017-07-03] MEDS: Chlorhexidine Rinse 15 ML MOUTHWASH MM SCH ×2 (07:54→20:05)
[2017-07-03 07:58] LABS: Thyroid Stimulating Hormone 14.553 mcIU/mL (0.340-5.600)
[2017-07-03 08:33] LABS: Glucose 84 mg/dL (70-105); Osmolality,Calculated 279 (280-300)
[2017-07-03] MEDS ORDERED: amLODIPine 5 MG TABLET PO SCH (09:00)
[2017-07-03] MEDS ORDERED: Patient Taking Own Medication 1 EACH TP SCH (09:00)
[2017-07-03 09:12] LABS: Triiodothyronine (T3) Free 3.77 pg/mL (2.50-3.90)
--- NOTE | 2017-07-03 10:19 | Cardiology Consult Note ---
<Tyler Benjamin - Last Filed: 07/03/17 15:17> Date of Encounter: 07/03/17 Time of Encounter: 10:00 Assessment and Plan (1) Atrial fibrillation with RVR Current Visit: Yes Status: Acute On 07/03/17, patient was found to be in A. fib with RVR on cardiac monitoring. -Patient denied having any symptoms; no chest pain or shortness of breath. -He was given 15 mg Cardizem IV once; was not converted to sinus rhythm. -Cardizem drip 5 mg per hour was started. Echocardiogram was ordered. -TSH was found to be elevated at 14.553. -Patient's last pulse was 124 bpm; respiratory rate 22/m. Plan: -Cardizem drip at 5 mg per hour. -Norvasc 10 mg PO QD. -Echocardiogram results are pending. -Will start heparin for DVT prophylaxis. Discussion w patient/family: The assessment and plan as outlined above was discussed with the patient and/or family members who expressed understanding and agreement. All questions were answered. Thank you for involving us in the care of your patient. Please call with any questions. History of Present Illness Consult date: 07/03/17 Consult reason: A. fib with RVR Chief complaint: Shortness of breath History of present illness: Mr. Foster is a 67 year old male who presented to ED for chest pain and shortness of breath. Patient noted that he awoke from sleep with right shoulder pain which progressed to increased chest pain and difficulty breathing after he was brushing off the snow from his 's car. On presentation, patient's pulse was 1 15 bpm, respiratory rate was 20/m, and blood pressure was elevated at 172/109. He was placed on 2 L of oxygen; pulse ox was 94%. In the ED, chest x-ray was performed; he was noted to have a large right-sided 50% pneumothorax. A small bore chest tube was placed without complication. A repeat X referring demonstrated an increase in the pneumothorax despite chest tube suction. Cardiothoracic surgery was consult that; large bore chest tube was placed. Patient reported that he has smoked approximately one pack per day from the age of 17. He quit 25 years ago. 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 He is currently being treated at [facility] with chemotherapy. Patient has no known history of emphysema or structural lung disease. He has no prior history of chest tube for pneumothorax. Denied having any recent falls or trauma. On 07/03/17, patient developed atrial fibrillation with RVR. Patient did not have any symptoms; denied having any chest pain or shortness of breath. His blood pressure was 130/80. He was given 15 mg IV Cardizem once. Rhythm was not converted to sinus. Patient was started on Cardizem drip. Echocardiogram was ordered. TSH was found to be elevated at 14.553. Patient seen and examined at bedside this morning. Past Med Surg Social Fam HX - Past Medical History Medical history: cancer (Static hepatocellular carcinoma), hypertension Psychiatric history: no psych history - Social History Smoking Status: Former smoker Packs per day: 1PPD X 25yrs Smokeless Tobacco Status: No Alcohol use: none Drug use: none - Family History Mother Living Status: Hx Family Neurologic Disorders: Yes (stroke) Medications and Allergies Amlodipine Besylate [Amlodipine Besylate] 10 mg PO DAILY 06/22/17 [History] Sorafenib Tosylate [Nexavar] 400 mg PO BID 06/22/17 [History] Tramadol HCl [Ultram] 50 mg PO Q4H PRN 06/22/17 [History] Urea [Urea] 1 appl TP BID 06/22/17 [History] 3 Allergy/AdvReac Type Severity Reaction Status Date / Time No Known Allergies Allergy Verified 06/22/17 06:14 All Systems Review: A 10-system review of systems was performed and is negative for pertinent findings except as documented above in the HPI. Physical Examination Vital Signs, Last 4 Hours Temp Pulse Resp BP Pulse Ox 07/03/17 09:00 124 22 131/81 87 07/03/17 08:32 100.0 F H 07/03/17 08:14 24 89 07/03/17 08:00 100 24 126/68 89 07/03/17 07:00 134 20 104/75 88 Results 07/02/17 07:30 07/03/17 06:53 Lab Results 07/03/17 06:53 Sodium 134 L Potassium 4.2 Chloride 109 H Carbon Dioxide 20 L BUN 17 Creatinine 0.82 Glucose 84 Calcium 8.3 L Magnesium 1.5 L TSH 14.553 H Consult Discharge Plan - Plan Referrals: Estela Woodard MD [Primary Care Provider] - () <Moussa,Tarek - Last Filed: 07/03/17 16:06> Date of Encounter: 07/03/17 - Attending Attestation I examined this patient and my medical decision-making was reviewed with the Resident Physician. I agree with the documented findings, disposition and treatment plan as described except to the extent set forth below. 67 YOM s/p Chest tube for pneumo, mets to lung from hepatocellular CA Preserved EF with no RWMA on ECHO PAF new onset converted to NSR with CCB ASA 81 mg daily for stroke risk reduction upon DC, If recurrent afib likely benefit from AC OP NST for ischemic work up PAF likely from underlying pneumo Assessment and Plan Discussion w patient/family: The assessment and plan as outlined above was discussed with the patient and/or family members who expressed understanding and agreement. All questions were answered. Thank you for involving us in the care of your patient. Please call with any questions. History of Present Illness History of present illness: Mr. Foster is a 67 year old male All Systems Review: A 10-system review of systems was performed and is negative for pertinent findings except as documented above in the HPI. Physical Examination Vital Signs, Last 4 Hours Pulse Resp BP Pulse Ox 07/03/17 15:00 82 24 131/72 88 07/03/17 13:00 88 07/03/17 12:08 18 90 Results 07/02/17 07:30 07/03/17 06:53 Lab Results 07/03/17 06:53 Sodium 134 L Potassium 4.2 Chloride 109 H Carbon Dioxide 20 L BUN 17 Creatinine 0.82 Glucose 84 Calcium 8.3 L Magnesium 1.5 L TSH 14.553 H
--- NOTE | 2017-07-03 10:51 | Cardiothoracic Progress Note ---
Date of Encounter: 07/03/17 Time of Encounter: 10:49 - Assessment and plan (1) Spontaneous pneumothorax Current Visit: Yes Status: Acute The patient is recovering well from his right thoracotomy with apical bleb resection and mechanical pleurodesis. He has a small intermittent air leak and chest tube #2 on suction. The patient's postoperative pain is fairly well controlled with the epidural and intermittent IV Dilaudid. He will continue with his aggressive pulmonary toilet. He will be transferred to the stepdown unit when a bed is available. The assessment and plan as outlined above was discussed with the patient and/or family members who expressed understanding and agreement. All questions were answered. - Subjective Procedure(s) Performed: POD#2 S/P Right thoracotomy with apical bleb resection Interval history: The patient remained hemodynamically stable overnight. This morning he had a short episode of atrial fibrillation with rapid ventricular response. He was placed on a Cardizem drip and has converted to normal sinus rhythm. His postoperative pain is fairly well controlled with the epidural and intermittent IV Dilaudid. He is breathing comfortably. Vital Signs, Last 4 Hours Temp Pulse Resp BP Pulse Ox 07/03/17 09:00 124 22 131/81 87 07/03/17 08:32 100.0 F H 07/03/17 08:14 24 89 07/03/17 08:00 100 24 126/68 89 07/03/17 07:00 134 20 104/75 88 Oxgyen Flow Rate Oxygen Flow Rate (LPM) 4 Clinical Data, last 8 Hours Output, Chest Tube Drainage 0 Amount [Right Mid-Axillary Chest #3] Output, Chest Tube Drainage 20 Amount [Right Mid-Axillary Chest #3] Output, Chest Tube Drainage 20 Amount [Right Mid-Axillary Chest #3] Output, Chest Tube Drainage 10 Amount [Right Mid-Axillary Chest #2] Output, Chest Tube Drainage 0 Amount [Right Mid-Axillary Chest #2] Output, Chest Tube Drainage 0 Amount [Right Mid-Axillary Chest #2] Output, Urine Amount 0 Output, Urine Amount 250 Output, Urine Amount 475 Output, Urine Amount 175 Output, Urine Amount 200 Weight 07/01/17 07/02/17 07/03/17 23:59 23:59 23:59 Weight 78.9 kg 87.1 kg 86.2 kg - Physical Examination General: Conversant, No Apparent Distress Neck: No JVD, Normal carotid pulses Cardiac: Reg Rate and Rhythm, Normal S1 and S2, No Murmur Incision: No signs of infection, Dry/intact dressing Chest tubes: Minimal drainage, Air leak (Chest tube #2, small and intermittent) Lungs: Normal Breath Sounds, No Wheeze, Rales, Rhonchi Neuro: Alert and responsive, No focal deficits noted Vascular: Normal capillary refill Extremities: No Clubbing, No Cyanosis, No Edema - Labs 07/02/17 07:30 07/03/17 06:53 Lab Results, Last 24 hours 07/03/17 06:53 Sodium 134 L Potassium 4.2 Chloride 109 H Carbon Dioxide 20 L BUN 17 Creatinine 0.82 Glucose 84 Calcium 8.3 L Magnesium 1.5 L TSH 14.553 H - Imaging Chest Xray: image reviewed (Small right apical pneumothorax. Bibasilar atelectasis.) - VTE Documentation of Mechanical Device: Intermittent pneumatic compression device Consult Discharge Plan - Plan Referrals: Estela Woodard MD [Primary Care Provider] - ()
[2017-07-03] MEDS ORDERED: Ondansetron ODT 4 MG TAB.RAPDIS SL PRN (11:02)
[2017-07-03] MEDS ORDERED: Acetaminophen 325 MG TABLET PO PRN (11:02)
[2017-07-03] MEDS ORDERED: Naloxone 0.4 MG/ML INJ IVP PRN (11:02)
[2017-07-03] MEDS ORDERED: Mag Hydrox/Al Hydrox/Simeth 30 ML UDC PO PRN (11:02)
[2017-07-03] MEDS ORDERED: *HR* Promethazine 25 MG/ML VIAL IVP PRN (11:02)
[2017-07-03] MEDS: Diltiazem CD (24hr) 120 MG CAPSULE PO SCH (11:38)
[2017-07-03] MEDS: Morphine Sulfate/PF 10mg/10mL 10 MG, Bupivacaine-MPF 0.25% 125 ML in 0.9 % Sodium Chlor... EP SCH (11:39)
--- NOTE | 2017-07-03 12:21 | Electrocardiograph Report ---
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
[2017-07-03] MEDS: *HR* Heparin 5,000 UNIT/ML VIAL SQ SCH ×2 (15:40→22:42)
--- NOTE | 2017-07-03 15:40 | Anesthesia Procedures ---
Date of Encounter: 07/03/17 Time of Encounter: 15:39 Procedures: Anesthesia - Epidural Rounding Post Op Day #: 2 Procedure: right thoracotomy Pain Control: Good Breakthrough Pain Meds: Yes Vital Signs: Selected Entries 07/03/17 15:00 Pulse Rate 82 Respiratory Rate 24 Blood Pressure 131/72 O2 Sat by Pulse Oximetry 88 Oxygen Delivery Method Nasal Cannula Mental Status: awake Catheter Site Dressing Intact: Yes Erythema: No Pruritus: not present Signs of Infection At Catheter Site: No Plan: Continue current rate
--- NOTE | 2017-07-03 16:19 | Internal Med Progress Note ---
Date of Encounter: 07/03/17 Time of Encounter: 12:10 - Assessment and plan (1) Spontaneous pneumothorax Current Visit: Yes Status: Acute Assessment and plan: Status post chest tube placement and right posterior lateral thoracotomy with apical bleb resection and mechanical pleurodesis. Continue management per cardiothoracic surgery recommendations. Pain control with epidural morphine and intravenous Dilaudid for breakthrough pain. O2 supplementation. Incentive spirometry. Pulmonary toilet. High risk for complications due to use of intravenous and intrathecal narcotic agents. (2) Metastatic carcinoma to lung Current Visit: Yes Status: Acute Assessment and plan: Follow-up with oncologist as outpatient. Qualifiers: Laterality: right Qualified Code(s): C78.01 - Secondary malignant neoplasm of right lung (3) DVT prophylaxis Current Visit: Yes Status: Acute Assessment and plan: Started on subcutaneous heparin per cardiology. Will monitor for signs of bleeding. (4) Atrial fibrillation with RVR Current Visit: Yes Status: Acute Assessment and plan: Rate controlled and in sinus rhythm currently on oral Cardizem. Cardiology input appreciated. At this time no anticoagulation recommended. If patient does develop recurrent A. fib, cardiology recommends anticoagulation. Patient does have high risk at this time for complications from anticoagulation due to presence of chest tube and right-sided spontaneous pneumothorax. - Subjective Interval history: Patient is currently lying in bed. Appears comfortable. Patient went into A. fib with rapid ventricular response last night. He was placed on intravenous Cardizem drip and has now converted to sinus rhythm. Denies any chest pain or palpitations. Does continue to have right upper chest wall pain. No fever or chills reported overnight. - Constitutional Vitals: Temp Pulse Resp BP Pulse Ox 98.1 F 82 24 131/72 88 07/03/17 16:09 07/03/17 15:00 07/03/17 15:00 07/03/17 15:00 07/03/17 15:00 General appearance: Present: cooperative, A&O X 3, pleasant, no acute distress, answers questions appropriately - Respiratory Respiratory exam: Present: chest wall tenderness (right chest wall tenderness). Absent: accessory muscle use, rales, rhonchi, wheezes - Cardiovascular Cardiovascular exam: Present: RRR, +S1, +S2. Absent: diastolic murmur, gallop, rubs, systolic murmur - GI/Abdominal GI/Abdominal exam: Present: normal bowel sounds, soft, no peritoneal signs. Absent: distended, tenderness - Extremities Exam Extremities exam: Present: warm, radial pulses palpable and symmetrical. Absent : calf tenderness, cyanotic, pedal edema - Neurological Exam Neurological exam: Present: alert, oriented X3, no focal deficits. Absent: facial droop, speech deficit - Skin Skin exam: Present: dry, intact Internal Medicine: Result - Labs CBC & Chem 7: 07/02/17 07:30 07/03/17 06:53 Labs: BMP 07/03/17 06:53 Sodium 134 L Potassium 4.2 Chloride 109 H Carbon Dioxide 20 L BUN 17 Creatinine 0.82 Glucose 84 Calcium 8.3 L - ABG Interpretation ABG results: ABG ABG pH 7.36 pH Units (7.32-7.45) 07/02/17 03:47 ABG pCO2 40 mmHg (35-45) 07/02/17 03:47 ABG pO2 71 mmHg (85-104) L 07/02/17 03:47 ABG O2 Saturation 93 % (95-98) L 07/02/17 03:47 PT/INR, D-dimer PT 12.3 Seconds (9.4-12.1) H 06/23/17 01:00 - Impressions Impressions Chest X-Ray 06/29/17 06:00 IMPRESSION: Unchanged large right pneumothorax. Critical results were called by Dr. Tramaine Esposito MD to David Patel on 06/29/2017 at 825 a.m. D/ / 06/29/2017 08:18:30 Tramaine Esposito MD / [facility] Interpreting Provider: Tramaine Esposito MD Chest X-Ray 07/03/17 00:01 IMPRESSION: 1. Tiny right pneumothorax. 2. Bibasilar atelectasis. D/ / 07/03/2017 07:42:22 Raul Hendrix MD / [facility] Interpreting Provider: Raul Hendrix MD - VTE Documentation of Mechanical Device: Intermittent pneumatic compression device Consult Discharge Plan - Plan Referrals: Estela Woodard MD [Primary Care Provider] - ()
[2017-07-04] MEDS: Patient Taking Own Medication 1 EACH PO SCH ×2 (00:30→11:57)
[2017-07-04] MEDS: *HR* HYDROmorphone (PF) 1 MG/ML SYRINGE IVP PRN ×6 (02:05→17:18)
[2017-07-04] MEDS: Morphine Sulfate/PF 10mg/10mL 10 MG, Bupivacaine-MPF 0.25% 125 ML in 0.9 % Sodium Chlor... EP SCH (02:57)
[2017-07-04] MEDS: Albuterol 2.5 MG/3 ML NEBULIZER IH SCH ×5 (03:32→20:09)
[2017-07-04 04:46] LABS: Basophils % 0.7 %
[2017-07-04 04:48] LABS: Basophils # 0.1 K/mcL (0.0-0.2); Eosinophils # 0.4 K/mcL (0.0-0.6); Hematocrit 38.3 % (37.5-50.1); Immature Granulocytes % 0.5 % (0-4); Immature Platelets 5.4 % (1.1-6.1); Lymphocytes # 0.7 K/mcL (0.6-4.6); Lymphocytes % 9.8 %; Mean Corpuscular HGB Conc 33.9 g/dL (31.6-35.5); Mean Corpuscular Hemoglobin 30.3 pg (28.0-33.3); Mean Corpuscular Volume 89.3 fL (83.0-100.0); Mean Platelet Volume 11.3 fL (9.4-12.4); Monocytes # 0.5 K/mcL (0.0-1.3); Monocytes % 7.2 %; Red Blood Count 4.29 M/mcL (4.19-5.50); Red Cell Distribution Width 15.2 % (11.5-14.5); Segmented Neutrophils % 76.8 %
[2017-07-04 04:50] LABS: Neutrophils # 5.8 K/mcL (1.6-8.9); Platelet Count 96 K/mcL (140-400)
[2017-07-04 05:02] LABS: BUN/Creatinine Ratio 19 (6-26); Blood Urea Nitrogen 14 mg/dL (8-23); Calcium 8.2 mg/dL (8.6-10.3); Carbon Dioxide 22 mEq/L (23-29); Chloride 106 mEq/L (98-107); Glucose 92 mg/dL (70-105); Osmolality,Calculated 276 (280-300); Potassium 4.2 mEq/L (3.5-5.1); Sodium 133 mEq/L (136-145); eGFR For African Americans > 60 (> 60); eGFR For Non-African Americans > 60 (> 60)
[2017-07-04] MEDS: Chlorhexidine Rinse 15 ML MOUTHWASH MM SCH ×2 (07:57→21:09)
[2017-07-04] MEDS: Diltiazem CD (24hr) 120 MG CAPSULE PO SCH (07:57)
[2017-07-04] MEDS: *HR* Heparin 5,000 UNIT/ML VIAL SQ SCH ×3 (07:57→21:09)
[2017-07-04] MEDS: amLODIPine 5 MG TABLET PO SCH (07:58)
--- NOTE | 2017-07-04 08:07 | Cardiothoracic Progress Note ---
Date of Encounter: 07/04/17 Time of Encounter: 08:05 - Assessment and plan (1) Spontaneous pneumothorax Current Visit: Yes Status: Acute The patient is recovering well from his right thoracotomy with apical bleb resection and mechanical pleurodesis. The air leak has resolved. Chest tubes were placed to waterseal. The assessment and plan as outlined above was discussed with the patient and/or family members who expressed understanding and agreement. All questions were answered. - Subjective Procedure(s) Performed: POD#3 S/P Right thoracotomy with apical bleb resection Interval history: The patient remained hemodynamically stable overnight. His postoperative pain is fairly well controlled with the epidural and intermittent IV Dilaudid. He is breathing comfortably. Vital Signs, Last 4 Hours Temp Pulse Resp BP Pulse Ox 07/04/17 07:11 97.8 F 82 19 125/76 91 07/04/17 04:12 98.6 F 94 20 141/75 91 Oxgyen Flow Rate Oxygen Flow Rate (LPM) 4 Clinical Data, last 8 Hours Output, Chest Tube Drainage 0 Amount [Right Mid-Axillary Chest #3] Output, Chest Tube Drainage 20 Amount [Right Mid-Axillary Chest #3] Output, Chest Tube Drainage 0 Amount [Right Mid-Axillary Chest #2] Output, Chest Tube Drainage 0 Amount [Right Mid-Axillary Chest #2] Output, Urine Amount 300 Output, Urine Amount 0 Output, Urine Amount 250 Weight 07/02/17 07/03/17 07/04/17 23:59 23:59 23:59 Weight 87.1 kg 86.2 kg 83.5 kg - Physical Examination General: Conversant, No Apparent Distress Neck: No JVD, Normal carotid pulses Cardiac: Reg Rate and Rhythm, Normal S1 and S2, No Murmur Incision: No signs of infection, Dry/intact dressing Chest tubes: Minimal drainage, Other (No air leak.) Lungs: Normal Breath Sounds, No Wheeze, Rales, Rhonchi Neuro: Alert and responsive, No focal deficits noted Vascular: Normal capillary refill Extremities: No Clubbing, No Cyanosis, No Edema - Labs 07/04/17 04:14 07/04/17 04:14 Lab Results, Last 24 hours 07/03/17 07/04/17 07/04/17 06:53 04:14 04:14 WBC 7.5 Hgb 13.0 Hct 38.3 Plt Count 96 L Sodium 134 L 133 L Potassium 4.2 4.2 Chloride 109 H 106 Carbon Dioxide 20 L 22 L BUN 17 14 Creatinine 0.82 0.75 Glucose 84 92 Calcium 8.3 L 8.2 L Magnesium 1.5 L TSH 14.553 H - Imaging Chest Xray: image reviewed (Small right apical pneumothorax.) - VTE Documentation of Mechanical Device: Intermittent pneumatic compression device Consult Discharge Plan - Plan Referrals: Estela Woodard MD [Primary Care Provider] - ()
[2017-07-04] MEDS: Patient Taking Own Medication 1 EACH TP SCH (11:57)
--- NOTE | 2017-07-04 16:33 | Internal Med Progress Note ---
Date of Encounter: 07/04/17 Time of Encounter: 10:25 - Assessment and plan (1) Spontaneous pneumothorax Current Visit: Yes Status: Acute Assessment and plan: Status post chest tube placement and right posterior lateral thoracotomy with apical bleb resection and mechanical pleurodesis. Chest x-ray done today shows small right hepatic pneumothorax. Patient also has mild bibasilar reticular ectasias. Cardiothoracic surgery following. Chest tube placed to waterseal. Continue pulmonary toilet and incentive spirometry. Pain control with epidural morphine. On intravenous Dilaudid for breakthrough pain. We will start Percocet orally for moderate pain and minimize intravenous Dilaudid use. High risk for complications due to use of intrathecal and intravenous narcotic use. (2) Atrial fibrillation with RVR Current Visit: Yes Status: Resolved Assessment and plan: Patient is currently in sinus rhythm. Continue Cardizem. (3) Metastatic carcinoma to lung Current Visit: Yes Status: Acute Qualifiers: Laterality: right Qualified Code(s): C78.01 - Secondary malignant neoplasm of right lung (4) DVT prophylaxis Current Visit: Yes Status: Acute Assessment and plan: With subcutaneous heparin - Subjective Interval history: Patient is awake and alert. Sitting up in chair. Feels that the pain in his right chest wall is getting better. Denies any central chest pain or shortness of breath. No palpitations. Has been in sinus rhythm since yesterday. - Constitutional Vitals: Temp Pulse Resp BP Pulse Ox 98.1 F 79 17 134/75 90 07/04/17 15:41 07/04/17 15:41 07/04/17 15:41 07/04/17 15:41 07/04/17 15:41 General appearance: Present: cooperative, A&O X 3, pleasant, no acute distress, answers questions appropriately - Respiratory Respiratory exam: Present: CTAB. Absent: accessory muscle use, rales, rhonchi, wheezes Additional comments: Right-sided chest tube in place - Cardiovascular Cardiovascular exam: Present: RRR, +S1, +S2. Absent: diastolic murmur, gallop, rubs, systolic murmur - GI/Abdominal GI/Abdominal exam: Present: normal bowel sounds, soft, no peritoneal signs. Absent: distended, tenderness Internal Medicine: Result - Labs CBC & Chem 7: 07/04/17 04:14 07/04/17 04:14 Labs: Short CBC 07/04/17 Range/Units 04:14 WBC 7.5 (4.3-11.1) K/mcL Hgb 13.0 (12.9-16.9) g/dL Hct 38.3 (37.5-50.1) % Plt Count 96 L (140-400) K/mcL Neutrophils # 5.8 (1.6-8.9) K/mcL BMP 07/04/17 04:14 Sodium 133 L Potassium 4.2 Chloride 106 Carbon Dioxide 22 L BUN 14 Creatinine 0.75 Glucose 92 Calcium 8.2 L - ABG Interpretation ABG results: ABG ABG pH 7.36 pH Units (7.32-7.45) 07/02/17 03:47 ABG pCO2 40 mmHg (35-45) 07/02/17 03:47 ABG pO2 71 mmHg (85-104) L 07/02/17 03:47 ABG O2 Saturation 93 % (95-98) L 07/02/17 03:47 PT/INR, D-dimer PT 12.3 Seconds (9.4-12.1) H 06/23/17 01:00 - Impressions Impressions Chest X-Ray 07/04/17 07:54 IMPRESSION: Stable position of right chest tubes. Unchanged small right apical pneumothorax. Mild bibasilar atelectasis. D/ / Harshad Boyd MD / Harshad Boyd MD Interpreting Provider: Harshad Boyd MD - VTE Documentation of Mechanical Device: Intermittent pneumatic compression device Consult Discharge Plan - Plan Referrals: Estela Woodard MD [Primary Care Provider] - ()
[2017-07-04] MEDS: *HR* OxyCODONE/APAP 5/325 TABLET PO PRN (21:09)
[2017-07-05] MEDS: Albuterol 2.5 MG/3 ML NEBULIZER IH SCH ×6 (00:03→20:42)
[2017-07-05] MEDS: *HR* HYDROmorphone (PF) 1 MG/ML SYRINGE IVP PRN ×3 (00:30→21:49)
[2017-07-05] MEDS: *HR* OxyCODONE/APAP 5/325 TABLET PO PRN ×4 (03:53→18:26)
[2017-07-05] MEDS: *HR* Heparin 5,000 UNIT/ML VIAL SQ SCH ×3 (05:34→21:49)
[2017-07-05] MEDS: Diltiazem CD (24hr) 120 MG CAPSULE PO SCH (07:35)
[2017-07-05] MEDS: Chlorhexidine Rinse 15 ML MOUTHWASH MM SCH ×2 (07:35→21:49)
[2017-07-05] MEDS: amLODIPine 5 MG TABLET PO SCH (07:35)
--- NOTE | 2017-07-05 09:42 | Cardiothoracic Progress Note ---
Date of Encounter: 07/05/17 Time of Encounter: 09:41 - Assessment and plan (1) Spontaneous pneumothorax Current Visit: Yes Status: Acute The patient is recovering well from his right thoracotomy with apical bleb resection and mechanical pleurodesis. The air leak has resolved. The chest tube were removed. The assessment and plan as outlined above was discussed with the patient and/or family members who expressed understanding and agreement. All questions were answered. - Subjective Procedure(s) Performed: POD#4 S/P Right thoracotomy with apical bleb resection Interval history: The patient remained hemodynamically stable overnight. His postoperative pain is fairly well controlled with the epidural and intermittent IV Dilaudid. He is breathing comfortably. Vital Signs, Last 4 Hours Temp Pulse Resp BP Pulse Ox 07/05/17 07:27 98.2 F 76 18 118/73 99 07/05/17 07:25 77 16 93 Oxgyen Flow Rate Oxygen Flow Rate (LPM) 2 Clinical Data, last 8 Hours Output, Chest Tube Drainage 0 Amount [Right Mid-Axillary Chest #3] Output, Chest Tube Drainage 0 Amount [Right Mid-Axillary Chest #3] Output, Chest Tube Drainage 100 Amount [Right Mid-Axillary Chest #3] Output, Chest Tube Drainage 0 Amount [Right Mid-Axillary Chest #2] Output, Chest Tube Drainage 0 Amount [Right Mid-Axillary Chest #2] Output, Urine Amount 200 Output, Urine Amount 0 Output, Urine Amount 150 Output, Urine Amount 100 Output, Urine Amount 625 Weight 07/03/17 07/04/17 07/05/17 23:59 23:59 23:59 Weight 86.2 kg 83.5 kg 79 kg - Physical Examination General: Conversant, No Apparent Distress Neck: No JVD, Normal carotid pulses Cardiac: Reg Rate and Rhythm, Normal S1 and S2, No Murmur Incision: No signs of infection, Dry/intact dressing Chest tubes: Minimal drainage, Other (No air leak) Lungs: Normal Breath Sounds, No Wheeze, Rales, Rhonchi Neuro: Alert and responsive, No focal deficits noted Vascular: Normal capillary refill Extremities: No Clubbing, No Cyanosis, No Edema - Labs 07/04/17 04:14 07/04/17 04:14 - Imaging Chest Xray: image reviewed (Small right apical pneumothorax, unchanged.) - VTE Documentation of Mechanical Device: Intermittent pneumatic compression device Consult Discharge Plan - Plan Referrals: Estela Woodard MD [Primary Care Provider] - ()
[2017-07-05] MEDS: Patient Taking Own Medication 1 EACH PO SCH ×2 (10:55→23:25)
[2017-07-05] MEDS: Patient Taking Own Medication 1 EACH TP SCH (10:55)
--- NOTE | 2017-07-05 14:18 | Internal Med Progress Note ---
Date of Encounter: 07/05/17 Time of Encounter: 09:40 - Assessment and plan (1) Spontaneous pneumothorax Current Visit: Yes Status: Acute Assessment and plan: Status post chest tube placement and right posterior lateral thoracotomy with apical bleb resection and mechanical pleurodesis. Cardiothoracic surgery plans on remaining chest tube later today. Continue supportive care and pain control. Currently on intrathecal morphine and IV Dilaudid for breakthrough pain. Tolerating oral pain medications. Has not required IV Dilaudid since last night. Most likely patient will be taken off intrathecal morphine after chest tube has been removed. Moderate risk for complications. (2) Atrial fibrillation with RVR Current Visit: Yes Status: Resolved Assessment and plan: Condition remains in sinus rhythm. Continue oral Cardizem. (3) Metastatic carcinoma to lung Current Visit: Yes Status: Acute Assessment and plan: Follow-up outpatient with oncology Qualifiers: Laterality: right Qualified Code(s): C78.01 - Secondary malignant neoplasm of right lung (4) DVT prophylaxis Current Visit: Yes Status: Acute Assessment and plan: On sq heparin - Subjective Interval history: Patient continues to improve. No new complaints at this time. Pain improving in the right chest wall and shoulder. - Constitutional Vitals: Temp Pulse Resp BP Pulse Ox 97.8 F 89 16 141/79 96 07/05/17 11:36 07/05/17 11:36 07/05/17 11:37 07/05/17 11:36 07/05/17 11:37 General appearance: Present: cooperative, A&O X 3, pleasant, no acute distress, answers questions appropriately - Respiratory Respiratory exam: Present: CTAB. Absent: accessory muscle use, rales, rhonchi, wheezes Additional comments: Right-sided chest tube in place - Cardiovascular Cardiovascular exam: Present: RRR, +S1, +S2. Absent: diastolic murmur, gallop, rubs, systolic murmur - GI/Abdominal GI/Abdominal exam: Present: normal bowel sounds, soft, no peritoneal signs. Absent: distended, tenderness - Extremities Exam Extremities exam: Present: warm, radial pulses palpable and symmetrical. Absent : calf tenderness, cyanotic, pedal edema Internal Medicine: Result - Labs CBC & Chem 7: 07/04/17 04:14 07/04/17 04:14 - ABG Interpretation ABG results: ABG ABG pH 7.36 pH Units (7.32-7.45) 07/02/17 03:47 ABG pCO2 40 mmHg (35-45) 07/02/17 03:47 ABG pO2 71 mmHg (85-104) L 07/02/17 03:47 ABG O2 Saturation 93 % (95-98) L 07/02/17 03:47 PT/INR, D-dimer PT 12.3 Seconds (9.4-12.1) H 06/23/17 01:00 - Impressions Impressions Chest X-Ray 07/05/17 06:00 IMPRESSION: Small right apical pneumothorax measuring up to 2.3 cm in maximal thickness, stable since the prior study. Stable cardiomegaly. Low lung volumes. Mild atelectasis at the bilateral lung bases. Trace bilateral pleural effusions. D/ / Edmund June MD / Edmund June MD Interpreting Provider: Edmund June MD - VTE Documentation of Mechanical Device: Intermittent pneumatic compression device Consult Discharge Plan - Plan Referrals: Estela Woodard MD [Primary Care Provider] - ()
--- NOTE | 2017-07-05 14:33 | Cardiology Progress Note ---
<Tyler Benjamin - Last Filed: 07/05/17 14:41> Date of Encounter: 07/05/17 Time of Encounter: 09:45 Assessment and Plan (1) Atrial fibrillation with RVR Current Visit: Yes Status: Resolved On 07/03/17, patient was found to be in A. fib with RVR on cardiac monitoring. -Patient denied having any symptoms; no chest pain or shortness of breath. -He was given 15 mg Cardizem IV once; was not converted to sinus rhythm. -Cardizem drip 5 mg per hour was started. Echocardiogram was ordered. -TSH was found to be elevated at 14.553; was started on 50 mcg Synthroid PO 0630. -HR is currently well controlled at 89 bpm. Plan: -Cardizem drip at 5 mg per hour. -Norvasc 10 mg PO QD. -Currently on heparin for DVT prophylaxis. Discussion w patient/family: The assessment and plan as outlined above was discussed with the patient and/or family members who expressed understanding and agreement. All questions were answered. Thank you for involving us in the care of your patient. Please call with any questions. Subjective Principal diagnosis: PTX Interval history: Patient was seen and examined at bedside this morning. Admits to some residual pain in his right chest wall/shoulder. His pain is improving. No further complaints at this time. Objective Vital Signs, Last 4 Hours Temp Pulse Resp BP Pulse Ox 07/05/17 11:37 16 96 07/05/17 11:36 97.8 F 89 18 141/79 96 General: Conversant, No Apparent Distress HEENT: Atraumatic, Normocephaly, Mucus Membranes Moist Neck: No JVD, Normal carotid pulses Cardiac: Reg Rate and Rhythm, Normal S1 and S2, No Murmur Lungs: Normal Breath Sounds, No Wheeze, Rales, Rhonchi, Other (R sided chest tube) Neuro: Alert and responsive, No focal deficits noted Skin: No rashes noted on visualized skin Musculoskeletal: No Chest Wall Tenderness Extremities: No Clubbing, No Cyanosis, No Edema, Normal Pulses Results 07/04/17 04:14 07/04/17 04:14 - VTE Documentation of Mechanical Device: Intermittent pneumatic compression device Consult Discharge Plan - Plan Referrals: Estela Woodard MD [Primary Care Provider] - () <Lalito Dillard - Last Filed: 07/05/17 19:58> Date of Encounter: 07/05/17 Assessment and Plan (1) Atrial fibrillation with RVR Current Visit: Yes Status: Resolved On 07/03/17, patient was found to be in A. fib with RVR on cardiac monitoring. -Patient denied having any symptoms; no chest pain or shortness of breath. -He was given 15 mg Cardizem IV once; was not converted to sinus rhythm. -Cardizem drip 5 mg per hour was started. Echocardiogram was ordered. -TSH was found to be elevated at 14.553; was started on 50 mcg Synthroid PO 0630. -HR is currently well controlled at 89 bpm. Plan: -Cardizem drip at 5 mg per hour. -Norvasc 10 mg PO QD. -Currently on heparin for DVT prophylaxis. I examined this patient and my medical decision-making was reviewed with the Resident Physician. I agree with the documented findings, disposition and treatment plan as described except to the extent set forth below. 67 YOM with PAF Subclinical hypothyroidism PO CCB Heparin IV for stroke risk reduction NOAC on DC if not contraindicated Discussion w patient/family: The assessment and plan as outlined above was discussed with the patient and/or family members who expressed understanding and agreement. All questions were answered. Thank you for involving us in the care of your patient. Please call with any questions. Objective Vital Signs, Last 4 Hours Temp Pulse Resp BP Pulse Ox 07/05/17 17:43 94 07/05/17 16:26 16 94 07/05/17 16:24 92 19 135/77 94 07/05/17 16:07 97.9 F 90 20 164/82 95 Results 07/04/17 04:14 07/04/17 04:14
[2017-07-06] MEDS: Albuterol 2.5 MG/3 ML NEBULIZER IH SCH ×6 (00:58→20:26)
[2017-07-06] MEDS: *HR* OxyCODONE/APAP 5/325 TABLET PO PRN ×4 (01:32→23:29)
[2017-07-06] MEDS: *HR* Heparin 5,000 UNIT/ML VIAL SQ SCH ×3 (05:49→21:42)
--- NOTE | 2017-07-06 07:41 | Cardiothoracic Progress Note ---
Date of Encounter: 07/06/17 Time of Encounter: 07:40 - Assessment and plan (1) Spontaneous pneumothorax Current Visit: Yes Status: Acute The patient is recovering well from his right thoracotomy with apical bleb resection and mechanical pleurodesis. The patient will continue ambulation today. If tomorrow's chest x-ray shows no change or improvement in his right apical pneumothorax, he may be discharged home. The assessment and plan as outlined above was discussed with the patient and/or family members who expressed understanding and agreement. All questions were answered. - Subjective Procedure(s) Performed: POD#5 S/P Right thoracotomy with apical bleb resection Interval history: The patient remained hemodynamically stable overnight. His postoperative pain is fairly well controlled. He is breathing comfortably. Vital Signs, Last 4 Hours Temp Pulse Resp BP Pulse Ox 07/06/17 04:57 97.8 F 93 17 137/81 90 07/06/17 04:20 79 Oxgyen Flow Rate Oxygen Flow Rate (LPM) 1 Clinical Data, last 8 Hours Output, Urine Amount 0 Output, Urine Amount 600 Output, Urine Amount 480 Output, Urine Amount 0 Weight 07/04/17 07/05/17 07/06/17 23:59 23:59 23:59 Weight 83.5 kg 79 kg 80.2 kg - Physical Examination General: Conversant, No Apparent Distress Neck: No JVD, Normal carotid pulses Cardiac: Reg Rate and Rhythm, Normal S1 and S2, No Murmur Incision: No signs of infection, Dry/intact dressing Lungs: Normal Breath Sounds, No Wheeze, Rales, Rhonchi Neuro: Alert and responsive, No focal deficits noted Vascular: Normal capillary refill Extremities: No Clubbing, No Cyanosis, No Edema - Labs 07/04/17 04:14 07/04/17 04:14 - Imaging Chest Xray: image reviewed (Small right apical pneumothorax, unchanged.) - VTE Documentation of Mechanical Device: Intermittent pneumatic compression device Consult Discharge Plan - Plan Referrals: Estela Woodard MD [Primary Care Provider] - ()
[2017-07-06] MEDS: Diltiazem CD (24hr) 120 MG CAPSULE PO SCH (07:48)
[2017-07-06] MEDS: amLODIPine 5 MG TABLET PO SCH (07:48)
[2017-07-06] MEDS: Patient Taking Own Medication 1 EACH TP SCH (07:48)
[2017-07-06] MEDS: Chlorhexidine Rinse 15 ML MOUTHWASH MM SCH ×2 (07:48→21:42)
[2017-07-06] MEDS: *HR* HYDROmorphone (PF) 1 MG/ML SYRINGE IVP PRN ×3 (07:56→21:42)
[2017-07-06] MEDS: Patient Taking Own Medication 1 EACH PO SCH ×2 (11:21→23:29)
--- NOTE | 2017-07-06 16:41 | Internal Med Progress Note ---
Date of Encounter: 07/06/17 Time of Encounter: 11:15 - Assessment and plan (1) Spontaneous pneumothorax Current Visit: Yes Status: Acute Assessment and plan: Status post chest tube placement and right posterior lateral thoracotomy with apical bleb resection and mechanical pleurodesis. Chest tube has now been removed. Patient is recovering well. Small right apical pneumothorax persistent but stable. (2) Atrial fibrillation with RVR Current Visit: Yes Status: Resolved Assessment and plan: In sinus rhythm. (3) Metastatic carcinoma to lung Current Visit: Yes Status: Acute Assessment and plan: Continue Nexavar. Qualifiers: Laterality: right Qualified Code(s): C78.01 - Secondary malignant neoplasm of right lung (4) DVT prophylaxis Current Visit: Yes Status: Acute - Subjective Interval history: Patient reports some pain in his right chest wall but was otherwise doing well. Overall, pain is much better. Denies any shortness of breath. No other new complaints. - Constitutional Vitals: Temp Pulse Resp BP Pulse Ox 98.1 F 88 19 126/79 95 07/06/17 15:42 07/06/17 15:42 07/06/17 15:42 07/06/17 15:42 07/06/17 15:42 General appearance: Present: cooperative, A&O X 3, pleasant, no acute distress, answers questions appropriately - Neck Neck exam general surgery: Present: supple, trachea midline. Absent: lymphadenopathy - Respiratory Respiratory exam: Present: CTAB. Absent: accessory muscle use, rales, rhonchi, wheezes - Cardiovascular Cardiovascular exam: Present: RRR, +S1, +S2. Absent: diastolic murmur, gallop, rubs, systolic murmur - GI/Abdominal GI/Abdominal exam: Present: normal bowel sounds, soft, no peritoneal signs. Absent: distended, tenderness Internal Medicine: Result - Labs CBC & Chem 7: 07/04/17 04:14 07/04/17 04:14 - ABG Interpretation ABG results: ABG ABG pH 7.36 pH Units (7.32-7.45) 07/02/17 03:47 ABG pCO2 40 mmHg (35-45) 07/02/17 03:47 ABG pO2 71 mmHg (85-104) L 07/02/17 03:47 ABG O2 Saturation 93 % (95-98) L 07/02/17 03:47 PT/INR, D-dimer PT 12.3 Seconds (9.4-12.1) H 06/23/17 01:00 - Impressions Impressions Chest X-Ray 07/06/17 06:00 IMPRESSION: Allowing for differences in patient positioning, no substantial change in small right apical pneumothorax after thoracostomy tube removal. D/ / David Villa / David Villa Interpreting Provider: David Villa - VTE Documentation of Mechanical Device: Intermittent pneumatic compression device Consult Discharge Plan - Plan Referrals: Estela Woodard MD [Primary Care Provider] - ()
[2017-07-07] MEDS: Albuterol 2.5 MG/3 ML NEBULIZER IH SCH ×3 (00:35→08:33)
[2017-07-07] MEDS: *HR* HYDROmorphone (PF) 1 MG/ML SYRINGE IVP PRN (05:05)
[2017-07-07] MEDS: *HR* Heparin 5,000 UNIT/ML VIAL SQ SCH (05:06)
[2017-07-07] MEDS: Diltiazem CD (24hr) 120 MG CAPSULE PO SCH (07:54)
[2017-07-07] MEDS: Chlorhexidine Rinse 15 ML MOUTHWASH MM SCH (07:55)
[2017-07-07] MEDS: *HR* OxyCODONE/APAP 5/325 TABLET PO PRN ×2 (07:55→11:53)
[2017-07-07] MEDS: amLODIPine 5 MG TABLET PO SCH (07:55)
[2017-07-07] MEDS: Patient Taking Own Medication 1 EACH TP SCH (07:57)
[2017-07-07 08:18] VITALS: BP 142/84
[2017-07-07] MEDS: Patient Taking Own Medication 1 EACH PO SCH (11:52)
--- NOTE | 2017-07-07 12:20 | Internal Med Progress Note ---
Date of Encounter: 07/07/17 Time of Encounter: 12:18 - Assessment and plan (1) Spontaneous pneumothorax Current Visit: Yes Status: Acute Assessment and plan: Status post chest tube placement and right posterior lateral thoracotomy with apical bleb resection and mechanical pleurodesis. Chest x-ray shows slight decrease in size of apical pneumothorax. Discharged by cardiothoracic surgery. Follow up as outpatient. (2) Atrial fibrillation with RVR Current Visit: Yes Status: Resolved Assessment and plan: Remains in sinus rhythm. Given the patient's comorbidities with hepatocellular carcinoma, mild thrombocytopenia and recent surgical procedure, he is at high risk for bleeding from anticoagulation. I discussed this with the cardiothoracic surgeon and given that he has had a brief episode of atrial fibrillation and has been in sinus rhythm since then, we will hold off on anticoagulation for now. continue ASA 81 mg PO daily (3) Metastatic carcinoma to lung Current Visit: Yes Status: Acute Qualifiers: Laterality: right Qualified Code(s): C78.01 - Secondary malignant neoplasm of right lung (4) DVT prophylaxis Current Visit: Yes Status: Acute (5) Hypothyroidism Current Visit: Yes Status: Chronic Assessment and plan: TSH elevated at 14 but t3, T4 normal. Started on 50 mcg levothyroxine here. F/u Outpatient with PCP. Recheck in 4-6 weeks. Qualifiers: Hypothyroidism type: unspecified Qualified Code(s): E03.9 - Hypothyroidism , unspecified - Subjective Interval history: Patient is doing well this morning. Has been discharged by cardiothoracic surgery. Denies any new complaints at this time. - Constitutional Vitals: Temp Pulse Resp BP Pulse Ox 97.9 F 101 18 142/84 95 07/07/17 07:50 07/07/17 07:50 07/07/17 07:50 07/07/17 07:50 07/07/17 07:50 General appearance: Present: cooperative, A&O X 3, pleasant, no acute distress, answers questions appropriately - Respiratory Respiratory exam: Present: CTAB. Absent: accessory muscle use, rales, rhonchi, wheezes - Cardiovascular Cardiovascular exam: Present: RRR, +S1, +S2. Absent: diastolic murmur, gallop, rubs, systolic murmur - Extremities Exam Extremities exam: Present: warm, radial pulses palpable and symmetrical. Absent : calf tenderness, cyanotic, pedal edema Internal Medicine: Result - Labs CBC & Chem 7: 07/04/17 04:14 07/04/17 04:14 - ABG Interpretation ABG results: ABG ABG pH 7.36 pH Units (7.32-7.45) 07/02/17 03:47 ABG pCO2 40 mmHg (35-45) 07/02/17 03:47 ABG pO2 71 mmHg (85-104) L 07/02/17 03:47 ABG O2 Saturation 93 % (95-98) L 07/02/17 03:47 PT/INR, D-dimer PT 12.3 Seconds (9.4-12.1) H 06/23/17 01:00 - Impressions Impressions Chest X-Ray 07/07/17 06:00 IMPRESSION: Stable to slightly smaller right apical pneumothorax. D/ / 07/07/2017 07:10:55 Raul Hendrix MD / daniela Interpreting Provider: Raul Hendrix MD - VTE Documentation of Mechanical Device: Intermittent pneumatic compression device Consult Discharge Plan - Plan Instructions: Diltiazem (By mouth), Chlorhexidine (Into the mouth), Oxycodone/ Acetaminophen (By mouth), Levothyroxine (By mouth), Thoracotomy (DC), Sternal Precautions, Resaw Operator (GEN) Additional Instructions: - CONTINUE TO USE THE INCENTIVE SPIROMETER AT LEAST 10 BREATHS 6 TIMES A DAY. - YOU MAY SHOWER, WASH WITH SOAP AND WATER, PAT DRY, NO SOAKING INCISION WHEN DIRECTED BY DR. PATEL (SATURDAY PER PATIENT). PREVIOUS CHEST TUBE SITES MAY DRAIN FOR A COUPLE WEEKS. EXTRA DRESSING SUPPLIES PROVIDED. IF NO DRAINAGE, YOU MAY LEAVE SITES OPEN TO AIR. - TAKE MEDS DIRECTED. - CONTINUE STERNAL PRECAUTIONS. - NO LIFTING GREATER THAN 10POUDS OR 1 GALLON OF MILK. - NO DRIVING UNTIL FOLLOW UP WITH DR. PATEL OR DIRECTED. Referrals: David Patel MD [Partnered Physician] - 08/08/17 1:20 pm (08-08-17 AT 1:20PM ) Estela Woodard MD [Primary Care Provider] - 07/12/17 10:45 am (07-12-17 AT 10:45AM) Prescriptions: Oxycodone HCl/Acetaminophen [Percocet 5-325 mg Tablet] 1 each PO Q4HR PRN #42 tablet PRN Reason: Pain OxyCODONE/APAP 5/325 [Percocet 5/325 MG] 1 each PO Q4HR PRN #42 tablet PRN Reason: Moderate Pain Aspirin Enteric Coated [Aspirin EC] 81 mg PO DAILY #30 tablet. Chlorhexidine Rinse 15 ml MM BID #8 mouthwash Diltiazem CD (24hr) [Cardizem CD] 120 mg PO DAILY #30 cap.er.24h Levothyroxine [Synthroid] 50 mcg PO 0630 #30 tablet
== END 2017-07-07 12:05 | disposition home or self-care (01) | DRG 164 ==
LOC: EMEROO 06:11 → 2NENU 06:11 → SUATTDRO 12:30 → 2NNU 06-23 22:45 → ICNU 07-01 08:09 → 2NNU 07-04 04:04
PROVIDERS: ADMIT Internal Medicine Nephrology; ATTEND Internal Medicine